=== PATIENT | female | born 1990 | race Caucasian/White ===

== ENCOUNTER 2016-04-06 14:07 | Emergency (ER) | payer OTHER ==
[2016-04-06] MEDS ORDERED: NS 1,000 ML IV ONE ×2 (14:49→16:18)
[2016-04-06] MEDS ORDERED: KETOROLAC 30 MG/1 ML SDV IVP ONE (14:49)
--- NOTE | 2016-04-06 15:04 | UCPHY ---
H & P Patient Type: New Chief Complaint Nursing Narrative: fever/nasal drng yellow/ n/v (pain under l breast) Time Seen by Provider: 04/06/16 14:29 HPI/ROS: This patient reports pleuritic pain under her right breast 6/10 intensity achy and sharp in nature worse with a deep breath and worse with certain positions. She explains that she feels most comfortable in a partial reclined position with little more discomfort when she is upright. She has no pain in the breast itself or the chest wall. It feels like it is deeper in. She explains that the pain started 2 nights ago before the onset of fevers. The fever started last night. She has associated chills. She has mild myalgias. She reports nasal congestion for a long time she thinks this may be related to allergies. She notes no clear exacerbating factors for symptoms other than the positional elements listed above. ROS: No other constitutional symptoms besides with mentioned in HPI. HEENT: No facial pain or sinus pain. No headache. No throat pain or ear pain. Pulmonary: No significant dyspnea. No productive cough. Cardiovascular: She has not noticed any lightheadedness. No heart palpitations. GI: No abdominal pain. No nausea vomiting. She maintains good appetite. Integumentary: Patient reports some kind of skin lesions/wounds on her legs that have been treated the wound care clinic [facility] with honey dressings on wraps every Tuesday. She reports no leg pain currently either in the skin or in the posterior calf. She has noticed any new leg swelling. No symptoms. 10 point ROS is otherwise negative. Source: Patient Exam Limitations: No limitations - Personal History LMP (Females 10-55): Irregular Current Tetanus/Diphtheria Vaccine: Yes - Medical/Surgical History PMH: Anxiety Leg wounds/skin condition. No history of DVT or PE Hx Asthma: Yes Hx Chronic Respiratory Disease: No Hx Diabetes: No Hx Cardiac Disease: No Hx Renal Disease: No Hx Cirrhosis: No Hx Alcoholism: No Hx HIV/AIDS: No Hx Splenectomy or Spleen Trauma: No Other PMH: anxiety/allergies - Family History Significant Family History: No pertinent family hx (No family history of DVT or PE.) - Social History Smoking Status: Current every day smoker Alcohol Use: None Drug Use: None - Physical Exam Exam: Vital signs are notable for fever to 38 centigrade and tachycardia to 123 General Appearance: Alert, no distress. Eyes: Pupils equal and round no pallor or injection. ENT, Mouth: Mucous membranes moist. Respiratory: Clear to auscultation. I appreciate no rales. No wheezing. No increased work of breathing. Cardiovascular: Tachycardia. No murmur gallop rub. Gastrointestinal: Abdomen is soft and nontender, no masses, bowel sounds normal. Neurological: Alert with no focal deficits. Skin: Warm and dry, no rashes. Patient refuses exam of her legs. She will not unwrap them Musculoskeletal: Neck is supple nontender. Extremities are symmetrical, full range of motion. No leg tenderness to palpation Psychiatric: Mood and affect are normal DIFFERENTIAL DIAGNOSIS: After history and physical exam differential diagnosis was considered for pneumonia, PE, pericarditis, influenza, flu-like illness, bronchitis Constitutional: Initial Vital Signs Temperature (C) 38 C 04/06/16 14:17 Heart Rate 123 H 04/06/16 14:17 Respiratory Rate 18 04/06/16 14:17 Blood Pressure 114/65 04/06/16 14:17 O2 Sat (%) 97 04/06/16 14:17 O2 Delivery Mode Room Air Allergies/Adverse Reactions: Sulfa (Sulfonamide Antibiotics) Allergy (Verified 04/06/16 14:15) Home Medications: Medication Instructions Recorded Rexulti 04/06/16 Singulair 04/06/16 Trintellix 04/06/16 Xanax 04/06/16 Zofran 04/06/16 Medical Decision Making ED Course/Re-evaluation: I discussed this case at 3:[address] Colindres with imaging EKG and labs pending. - Data Points Laboratory Results: 04/06/16 14:50 Influenza Typ A,B (DFA) Pending Departure - Departure Referrals: NONE *PRIMARY CARE P,. [Primary Care Provider] - As per Instructions - PQRS PQRS Measurement: NA
[2016-04-06 15:09] LABS: % IMMATURE GRANULYOCYTES 0.3 % (0.0-1.1); ABSOLUTE IMMATURE GRANULOCYTES 0.02 10^3/uL (0.00-0.10); ADD DIFF? NO; ADD MORPH? NO; ADD SCAN? NO; ATYPICAL LYMPHOCYTE FLAG 0 (0-99); FRAGMENT RBC FLAG 60 (0-99); LEFT SHIFT FLG 0 (0-99); LIPEMIA HEMOLYSIS FLAG 80 (0-99); MEAN CELL HEMOGLOBIN 22.9 pg (27.9-34.1); MEAN CELL HEMOGLOBIN CONCENTR. 31.3 g/dL (32.4-36.7); MEAN CELL VOLUME 73.4 fL (81.5-99.8); MEAN PLATELET VOLUME 10.4 fL (8.7-11.7); PLATELET CLUMPS FLAG 0 (0-99); PLATELET COUNT 258 10^3/uL (150-400); RED BLOOD CELL COUNT 4.36 10^6/uL (4.18-5.33); RED CELL DISTRIBUTION WIDTH 17.3 % (11.5-15.2)
[2016-04-06 15:21] LABS: ANION GAP 13 mEq/L (8-16); CALCIUM 8.8 mg/dL (8.5-10.4); CARBON DIOXIDE 23 mEq/l (22-31); CHLORIDE 100 mEq/L (97-110); CREATININE 0.8 mg/dL (0.6-1.0); GLOMERULAR FILTRATION RATE > 60; GLUCOSE 140 mg/dL (70-100); POTASSIUM 4.3 mEq/L (3.5-5.2); SODIUM 136 mEq/L (134-144)
[2016-04-06 15:33] LABS: ALBUMIN 3.7 g/dL (3.5-5.0); BILIRUBIN,TOTAL 1.2 mg/dL (0.1-1.4); BILIRUBIN-CONJUGATED 0.4 mg/dL (0.0-0.5); BILIRUBIN-UNCONJUGATED 0.8 mg/dL (0.0-1.1); TOTAL PROTEIN 7.1 g/dL (6.3-8.2)
--- NOTE | 2016-04-06 15:36 | CPEKG ---
Heart Rate: 105 RR Interval: 571 P-R Interval: 140 QRSD Interval: 88 QT Interval: 332 QTC Interval: 439 P [place]: 32 QRS [place]: 47 T Wave [place]: 20 EKG Severity - OTHERWISE NORMAL ECG - EKG Impression: SINUS TACHYCARDIA Electronically Signed By: Maciel Guillermo 08-Apr-2016 08:54:51
[2016-04-06] MEDS ORDERED: IOPAMIDOL (ISOVUE-370) 150 ML BTL IV ONE (15:46)
[2016-04-06] MEDS ORDERED: AZITHROMYCIN IV 500 MG in D5W 250 ML IV ONE (16:33)
[2016-04-06] MEDS ORDERED: cefTRIAXone 1 GM VIAL ONE (16:47)
[2016-04-06 17:54] VITALS: TEMP 99; O2SAT 95
[2016-04-06 18:41] VITALS: BP 123/79; PULSE 88; RESP 20
== END 2016-04-06 18:53 | disposition home or self-care (01) ==
LOC: CED 14:07
DX: J18.9 Pneumonia, unspecified organism (principal); B95.61 Methicillin susceptible Staphylococcus aureus infection as the cause of diseases classified elsewhere; F17.200 Nicotine dependence, unspecified, uncomplicated; Z88.2 Allergy status to sulfonamides
CPT/HCPCS: 71020-PO; 71275-PO; 80048-PO; 80076-PO; 83605-PO; 84703-PO; 85025-PO; 85378-PO; 87400-PO; 93010-PO; 96361-PO; 96365-PO; 96367-PO; 96375-PO; 99205-PO; G0463-PO; J0456; J0696; J1885; Q9967

== ENCOUNTER 2016-04-07 23:58 | Inpatient (IN) | payer OTHER ==
[2016-04-08] MEDS ORDERED: ceFAZolin 1 GM in NS 100 ML IV ONE (00:59)
--- NOTE | 2016-04-08 00:59 | EDPHY ---
H & P Stated Complaint: SENT BY [facility] FOR BACTERIA IN BLOOD, STILL HAVING R CHEST PAIN ,FEVER Time Seen by Provider: 04/08/16 00:16 HPI/ROS: HPI The patient presents with right-sided chest pain and fever which have been present for the last 3 days. Her symptoms began with pain below her right breast 4 days ago, then she developed a fever the next day. Her fevers have been as high as 104.5. She does not have a cough, runny nose, sore throat. She does not have a rash. She was seen at the [facility] yesterday and had a workup there including a CT scan of her chest which revealed bilateral pneumonia. She was discharged on azithromycin. She has been feeling the same ever since. Blood cultures were sent and today are growing methicillin sensitive Staph aureus. Because of this the patient was contacted at home and told to return to the emergency room. She has a history of IV drug use, last use in December of 2015. She also has a history of chronic leg ulcerations after an episode of peripheral edema for which she is getting care at a wound care center.. REVIEW OF SYSTEMS Constitutional: No fever, no chills. Eyes: No discharge. ENT: No sore throat. Cardiovascular: No chest pain, no palpitations. Respiratory: No cough, no shortness of breath. Gastrointestinal: No abdominal pain, no vomiting. Genitourinary: No hematuria. Musculoskeletal: No back pain. Skin: No rashes. Neurological: No headache. PMHx: Have a normal echo about 1 month ago with a bicuspid aortic valve possibly? Soc Hx: Housed, history of IV drug use PHYSICAL General Appearance: Alert, no distress Eyes: Pupils equal and round no pallor or injection ENT, Mouth: Mucous membranes moist Respiratory: There are no retractions, lungs are clear to auscultation Cardiovascular: Regular rate and rhythm, no murmur Gastrointestinal: Abdomen is soft and non-tender, no masses, bowel sounds normal Neurological: A&O, moves all extremities Skin: Warm and dry, no rashes Musculoskeletal: Neck is supple non tender Extremities: symmetrical, legs are wrapped with [place] Psychiatric: Patient is oriented X 3, there is no agitation Source: Patient Exam Limitations: No limitations - Personal History LMP (Females 10-55): Irregular Current Tetanus/Diphtheria Vaccine: Yes - Medical/Surgical History Hx Asthma: Yes Hx Chronic Respiratory Disease: No Hx Diabetes: No Hx Cardiac Disease: No Hx Renal Disease: No Hx Cirrhosis: No Hx Alcoholism: No Hx HIV/AIDS: No Hx Splenectomy or Spleen Trauma: No Other PMH: anxiety/allergies, GERD - Social History Smoking Status: Current every day smoker Constitutional: Initial Vital Signs Temperature (C) 36.7 C 04/08/16 00:05 Heart Rate 95 04/08/16 00:05 Respiratory Rate 18 04/08/16 00:05 Blood Pressure 122/85 H 04/08/16 00:05 O2 Sat (%) 100 04/08/16 00:05 Allergies/Adverse Reactions: Sulfa (Sulfonamide Antibiotics) Allergy (Verified 04/08/16 00:03) Home Medications: Medication Instructions Recorded AZITHROMYCIN [Z-PACK] 500 mg PO DAILY #7 tab 04/06/16 Ibuprofen [Motrin (*)] 800 mg PO Q6-8PRN #10 tab 04/06/16 Rexulti 04/06/16 Singulair 04/06/16 Trintellix 04/06/16 Xanax 04/06/16 Zofran 04/06/16 Medical Decision Making - Diagnostics Imaging: Chest x-ray two view shows bilateral infiltrates verses reactive airway disease , interpreted by me, radiology interpretation is pending ED Course/Re-evaluation: In the emergency room, the patient had a deep brachial IV placed by me. Blood cultures were drawn, the patient was given IV fluids and Toradol for her pain. I discussed the case with the hospitalist and we plan to admit the patient. We will start her on Ancef. Differential Diagnosis: This is a 26-year-old female with recent diagnosis of bilateral pneumonia yesterday at [facility] based on CT scan of chest with IV contrast. The patient has had several days of fever and right-sided chest pain. Blood cultures returned positive for MSSA today which raises suspicion of endocarditis given her history of IVDU. Differential diagnosis includes endocarditis, bilateral pneumonia, bacteremia. - Data Points Medications Given: Discontinued Medications Cefazolin Sodium/Dextrose (Ancef 1 Gm (Premix)) 50 mls @ 200 mls/hr IV EDNOW ONE Stop: 04/08/16 01:44 Last Admin: 04/08/16 03:15 Dose: 50 mls Ketorolac Tromethamine (Toradol) 30 mg IVP ONCE ONE Stop: 04/08/16 02:05 Last Admin: 04/08/16 02:27 Dose: 30 mg Departure - Departure Disposition: [facility] Acute Clinical Impression: Bacteremia Pneumonia Qualifiers: Pneumonia type: due to unspecified organism Laterality: bilateral Lung location : unspecified part of lung Qualified Code(s): J18.9 - Pneumonia, unspecified organism Condition: Fair
[2016-04-08 01:46] LABS: COLOR PALE YELLOW; LEUKOCYTE ESTERASE,URINE NEGATIVE (NEGATIVE); NITRITE,URINE NEGATIVE (NEGATIVE)
[2016-04-08 01:48] LABS: BACTERIA 3+ /hpf (NONE SEEN)
[2016-04-08] MEDS ORDERED: KETOROLAC 30 MG/1 ML SDV IVP ONE (02:04)
[2016-04-08 02:05] LABS: % IMMATURE GRANULYOCYTES 0.3 % (0.0-1.1); ABSOLUTE IMMATURE GRANULOCYTES 0.02 10^3/uL (0.00-0.10); ADD DIFF? NO; ADD MORPH? NO; ADD SCAN? NO; ATYPICAL LYMPHOCYTE FLAG 20 (0-99); FRAGMENT RBC FLAG 60 (0-99); HEMATOCRIT 29.2 % (38.0-47.0); HEMOGLOBIN 8.9 g/dL (12.6-16.3); LEFT SHIFT FLG 10 (0-99); LIPEMIA HEMOLYSIS FLAG 80 (0-99); MEAN CELL HEMOGLOBIN 22.9 pg (27.9-34.1); MEAN CELL HEMOGLOBIN CONCENTR. 30.5 g/dL (32.4-36.7); MEAN CELL VOLUME 75.1 fL (81.5-99.8); MEAN PLATELET VOLUME 12.4 fL (8.7-11.7); PLATELET CLUMPS FLAG 0 (0-99); PLATELET COUNT 312 10^3/uL (150-400); RED BLOOD CELL COUNT 3.89 10^6/uL (4.18-5.33); RED CELL DISTRIBUTION WIDTH 17.7 % (11.5-15.2)
[2016-04-08 02:17] LABS: ALANINE AMINOTRANSFERASE 47 IU/L (9-52); ALKALINE PHOSPHATASE 86 IU/L (38-126); ANION GAP 11 mEq/L (8-16); ASPARTATE AMINOTRANSFERASE 35 IU/L (14-46); BILIRUBIN,TOTAL 0.8 mg/dL (0.1-1.4); CARBON DIOXIDE 24 mEq/l (22-31); CHLORIDE 106 mEq/L (97-110); CREATININE 0.6 mg/dL (0.6-1.0); GLOMERULAR FILTRATION RATE > 60; GLUCOSE 90 mg/dL (70-100); POTASSIUM 3.8 mEq/L (3.5-5.2); SODIUM 141 mEq/L (134-144); TOTAL PROTEIN 7.5 g/dL (6.3-8.2)
[2016-04-08] MEDS ORDERED: PROMETHAZINE HCL 25 MG/ML INJ IVP PRN (03:04)
[2016-04-08] MEDS ORDERED: ACETAMINOPHEN 325 MG TAB PO PRN (03:04)
[2016-04-08] MEDS ORDERED: IBUPROFEN 600 MG TAB PO PRN (03:20)
--- NOTE | 2016-04-08 03:54 | GHP ---
DATE OF ADMISSION: 04/08/2016 CHIEF COMPLAINT: Pleuritic chest pain. HISTORY: The patient is a 26-year-old female, who went to urgent care on April 06 complaining of right-sided pleuritic chest pain. This was better with lying down and worse with being upright. I was present for 2 days at the time of presentation. She was having fever and chills. CT angiogram of the chest was negative for pulmonary embolus but did show pneumonia. She was treated with IV ce ftriaxone and discharged with oral azithromycin. Blood cultures drawn at urgent care, have grown 1/ 4 bottles with MSSA and so she was called to return to the emergency room. She states her chest pain over the last 2 days has gotten worse. She has never had any cough. She has been taking her antibiotic as prescribed. She has chronic lower extremity leg wounds for the st few months due to development of edema. Etiology of the edema is unclear. She is followed at [facility]. They are doing a honey dressing. She saw her wound care physician t his morning at [place] and the wounds were healing nicely without any signs of infection. She is decli filiberto takedown of those dressings at this time. She was referred to Cardiology for evaluation of pos sible cardiac etiology of edema. She has a known bicuspid aortic valve which was diagnosed when she was a teenager. She had an echo [address] Bronson and they have not heard any results. They have a followup appointment with him next week. PAST MEDICAL HISTORY: 1. Bicuspid aortic valve. 2. IV drug abuse last used in December. 3. Anxiety. MEDICATIONS: Please see computer record for full detailed list. ALLERGIES: To sulfa. SOCIAL HISTORY: She is a smoker. She has a history of IV drug abuse. Her last use was in December . She lives with her boyfriend. Her parents appear to be very supportive and are at bedside. She is not currently employed. 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 She hop es to go back and complete her degree. She has a plan regarding outpatient resources for her addict ion issues. REVIEW OF SYSTEMS: Complete review of systems obtained. Review of systems is negative regarding co nstitutional, HEENT, GI, pulmonary, cardiovascular, , hematology, skin, musculoskeletal, endocrine , psych, except for positives as in HPI. FAMILY HISTORY: Reviewed, noncontributory to presenting complaint. PHYSICAL EXAMINATION: GENERAL: Well-developed, well-nourished female, in no acute no acute distres s. VITAL SIGNS: Temperature is 36.7, pulse 95, blood pressure 122/85, saturating 95% on room air. HEENT: Normal conjunctiva. Pupils react to light. ENT: Normal ears and nose. Hearing intact. Normal teeth. Oropharynx moist. NECK: Trachea midline. No thyromegaly. CHEST: Normal respirato ry effort. LUNGS: Clear to auscultation bilaterally. CARDIOVASCULAR: Regular rate and rhythm. I do not hear much of a murmur. LOWER EXTREMITIES: Edematous but wrapped in a large dressing. She refuses having these dressings taken down. ABDOMEN: Soft, nontender. No hepatosplenomegaly. SKIN : Warm, dry, intact without rash. I cannot assess lower extremities due to her refusal. MUSCULOSK ELETAL: No cyanosis or clubbing. Strength 5/5 upper and lower extremities. NEURO: Cranial nerves intact. Normal sensation to light touch. PSYCH: Alert and oriented x3. She is very anxious, cry ing frequently throughout the exam. Normal judgment, insight. Normal memory. LABORATORY DATA: White count 6.16, hematocrit 29.2, platelets 312. Sodium 141, potassium 3.8, chlo ride 106, bicarb 24, BUN 9, creatinine 0.6, glucose 90. LFTs are negative. EKG viewed by me. My personal interpretation is sinus rhythm, no ST-T wave changes. Chest x-ray is negative. Blood cultures from April 06 growing MSSA / bottles. CT angiogram of chest on that date shows bilateral infiltrates consistent with pneumonia. No PE. Influenza DFA was negative. This case was discussed with Dr. Val Sher, emergency [facility]. They have been struggling with IV access in the emergency room but they will plan to give IV Ancef. ASSESSMENT/PLAN: 1. Staph aureus bacteremia, 02/10 blood cultures positive repeat blood cultures have been sent. The patient be initiated on IV Ancef. Will consult Infectious Disease. Source of the bacteremia is unc lear. I query her leg wounds and I informed her that dressings will need to be taken down at some p oint during this hospitalization. 2. Bicuspid aortic valve. Will check a transthoracic echocardiogram. She may need a SUHAIL. 3. History of IV drug abuse. No use since last December. Will check an HIV. 4. Anxiety. This appears to be quite significant. Will reconcile her home medications. 5. Pneumonia. She has only gotten 2 days of azithromycin. She does have confirmed infiltrates on her CAT scan. Will continue azithromycin orally. 6. Leg wounds. She refuses taking down of her dressings tonight. She hesitantly agreed to do it i n court if the wound care nurse coordinates with her outpatient wound care physician at [place]. 7. Lower extremity edema. Etiology of this is unclear. She does not appear to be in congestive he art failure. Reported previous lower extremity ultrasounds were negative for DVT. 8. Tobacco dependence. Will offer nicotine patch. 9. Pleuritic chest pain. This is probably pleurisy related to her pneumonia. She will be treated with Toradol as needed. CORE STATUS: Full. ADMISSION STATUS: Will admit to inpatient as she is medically complex. Anticipate greater than 2 m idnights required. DVT PROPHYLAXIS: She is moderate risk. Will prescribe subcu Lovenox. /[id number]/MODL
[2016-04-08] MEDS: NS 1,000 ML IV SCH (04:09)
[2016-04-08] MEDS: LORazepam 0.5 MG TAB PO PRN (04:10)
[2016-04-08] MEDS ORDERED: AZITHROMYCIN 250 MG TAB PO SCH (09:00)
[2016-04-08] MEDS: ENOXAPARIN 40 MG/0.4 ML SYR SC SCH (09:50)
--- NOTE | 2016-04-08 09:53 | WOCRNPDOC ---
[facility] Advanced Assessment Note - Skin Integrity Problem, Advanced Assess Right Anterior Lower Leg Dressing Type: Honey Alginate, Unna Boots, Xtrasorb Dressing Description: Intact, Shadowed (Optilock shadowed. Unna boot intact) Exudate Amount: Moderate Exudate Characteristic(s): Serosanguinous Integumentary Issue Intervention: Dressing Changed Sally Wound Swelling: Mild Wound Bed Constitution: Granulation Tissue, Adhered Slough, Loose Slough Wound Edges: Epithelizing, Attached, Irregular, Scarred Site Odor: None Site Measurement - Head-to-Toe Length X Width X Depth (cm): 7.3x4.2x0.3 Skin Integrity Problem Comment: Dressing changed and wound debrided yesterday at [facility] outpatient wound care department. Sally wound skin with scar tissue evident of a much larger wound that has been healing over an extended period of time. Discussed patient with Michelle wound RN at [facility]. Wounds biopsied in Dec with a report of inflammatory changes but negative for other anomalies. Patient being treated for venous stasis wounds with inelastic compression. SPP done with a result of approx 50 mm Hg. Wound cleaned with ns and gauze. skin prep applied periwound. Honey alginate placed over open area and then covered with 1/2 tegaderm absorbant. Wraped in place with kerlix. Angie MIMS in room. Left Anterior Lower Leg Dressing Type: Promogran Ag+, Unna Boots, Xtrasorb Dressing Description: Clean/Dry, Shadowed (xtrasorb was shadowed. Not unna boot. ) Exudate Amount: Moderate Exudate Characteristic(s): Serosanguinous Integumentary Issue Intervention: Dressing Changed Sally Wound Tissue: Scarred Sally Wound Swelling: Mild Wound Bed Color: [place], Red Wound Bed Constitution: Granulation Tissue, Smooth Tissue (including epithelial tissue in the wound bed. ) Wound Edges: Epithelizing Site Odor: None Site Measurement - Head-to-Toe Length X Width X Depth (cm): 5.5x4.3x0.3 Extremity Temperature: Warm Skin Integrity Problem Comment: Same wound history as right leg. Cleaned with ns and gauze. Following outpatient wound care at [facility]'s plan, malou was placed over wound bed. This was covered with tegaderm absorbant and secured with kerlix. Asked PRASANNA Adams to measure calves so Tubigrips could be sent down. Waiting for measurements. Dr. Mendoza visualized wounds. PRASANNA Adams measured bilateral calves to 41 cm. Tubigrip G sent down for patient for low compression.
[2016-04-08] MEDS: NICOTINE 21 MG/24 HR PATCH TD SCH (10:00)
[2016-04-08] MEDS: KETOROLAC 30 MG/1 ML SDV IVP PRN ×2 (10:11→21:46)
[2016-04-08 10:47] LABS: HEMATOCRIT 30.1 % (38.0-47.0)
[2016-04-08 11:02] LABS: TROPONIN I < 0.012 ng/mL (0-0.034)
[2016-04-08 11:24] LABS: C-REACTIVE PROTEIN 141.9 mg/L (<10.0)
--- NOTE | 2016-04-08 11:25 | GCON ---
INFECTIOUS DISEASE CONSULTATION DATE OF CONSULTATION: 04/08/2016 REFERRING PHYSICIAN: Susannah Aragon MD REASON FOR CONSULTATION: Staphylococcus aureus bacteremia. HISTORY OF PRESENT ILLNESS: The patient is a 26-year-old female with a past medical history of chronic lower extremity wounds for several months, who I am asked to see in consultation for methicillin-susceptible Staphylococcus aureus bacteremia. The patient described developing fever and chills several days prior to presentation. The chills were consistent with rigors. The patient also developed right-sided pleuritic chest pain without cough or shortness of breath. She had some associated nausea with vomiting but no diarrhea. She did not have sore throat, urinary symptoms, or additional skin rash other than chronic ulcerations over her lower extremity, which were cared for at [facility]. The patient was seen in urgent care on , at which point in time a CT scan of the chest was done which did not show evidence of pulmonary emboli but did reveal bilateral ground-glass opacities, most prominent in the lung periphery. The patient has a known prior history of bicuspid aortic valve as well. The patient was treated with ceftriaxone and azithromycin, and blood cultures were obtained. The following day, her blood cultures began to grow MSSA in 1 set, and the patient was notified and advised to return to the hospital for further care. She has been started on cefazolin based on her positive blood cultures, and azithromycin has been continued for possible pneumonia. The patient has a history of injection drug use and denies any use since December. She has no recent travel. She notes that she did not share needles previously. Given the above findings, I am now asked to assist in the patient's ongoing management. PAST MEDICAL HISTORY: Chronic leg ulcerations of unclear etiology as above, bicuspid aortic valve, odontogenic infection after wisdom tooth extraction. PAST SURGICAL HISTORY: [place] tooth extraction, wrist fracture on the right requiring hardware placement. CURRENT MEDICATIONS: Ancef 1 g IV q.8 hours, azithromycin 500 mg p.o. daily, Lovenox 40 mg subcu daily, Motrin as needed, Toradol as needed, Ativan as needed , NicoDerm CQ 21 mg patch applied daily. ALLERGIES: Sulfonamides, associated with anaphylaxis. SOCIAL HISTORY: Patient smokes several cigarettes daily. No alcohol intake. She denies any current drug use. She previously was using injection heroin but notes no use since December. States previous HIV testing was negative. Unclear prior hepatitis testing. There is a pet cat. She currently is unemployed. FAMILY HISTORY: Noncontributory. REVIEW OF SYSTEMS: Outside that noted in the HPI, the remainder of a 10-system review is unremarkable. PHYSICAL EXAMINATION: VITAL SIGNS: Temperature maximum of 38 on 04/06/2016, temperature current 37, heart rate 99, respiratory rate 16, blood pressure 140/ 78, oxygen saturation 87% on room air. GENERAL: Patient is mildly ill appearing but in no acute distress. She appears nontoxic. HEENT: There is no scleral icterus, conjunctival injection, or conjunctival petechiae. Oropharynx shows moist mucous membranes with no lesions noted. Dentition is in fair repair. There is no nasal discharge. There is no tenderness over the frontal, maxillary, or mastoid area. NECK: Supple without lymphadenopathy or palpable thyromegaly. CHEST: There are crackles at the right base, otherwise clear to auscultation. Respiratory effort is normal. CARDIOVASCULAR: Regular rate and rhythm with a 2/6 holosystolic murmur heard throughout. There are no gallops or rubs noted. ABDOMEN: Soft, nontender, nondistended. There is no palpable organomegaly. Bowel sounds are present. MUSCULOSKELETAL: There is 1+ lower extremity edema bilaterally. SKIN: There are clean-based ulcerations over both anterior shins measuring approximately 6 x 8 cm without surrounding cellulitis. There is no purulent discharge. There are no stigmata of endocarditis present. The skin is warm diffusely. NEUROLOGIC: Patient is alert and interacts appropriately with the examiner. Cranial nerves 2-12 are grossly intact. Muscle tone and bulk are normal. LYMPHATICS: There are no cervical, supraclavicular or inguinal nodes palpable. LABORATORY DATA: White blood cell count 6.2, hematocrit 29.2, platelets 312, neutrophils 63%, lymphocytes 26%. Serum creatinine is 0.6, AST 35, ALT 47, bilirubin 0.8, albumin 4.0, alkaline phosphatase 86. , Beta HCG is negative. Urinalysis shows 10-15 red blood cells with 3+ bacteria. HIV antibody is pending. Influenza by DFA is negative. Blood culture showing 1 of 4 bottles with growth of MSSA from 04/06/2016. Blood cultures from 04/08/[address] scan of the chest as outlined above, which was reviewed and interpreted by me with Radiology today. EKG shows OK interval of 0.14. IMPRESSION: 1. Methicillin-resistant Staphylococcus aureus bacteremia with concomitant bilateral ground-glass opacities: Most likely portal of entry for patient's staphylococcal bacteremia is her chronic leg wounds. Recurrent injection drug use is also of consideration, although patient currently notes that she has been free of heroin use since December. The pulmonary infiltrates are concerning for early septic pulmonary emboli based on the nodular component and the peripheral location. Community-acquired pneumonia seems less likely on top of her Staphylococcus bacteremia. Given her underlying bicuspid aortic valve, endocarditis is of concern; and based on the pulmonary findings, also have concerns about possible involvement of the tricuspid valve. We will increase cefazolin from 1 g q.8 hours to 2 g q.8 hours. 2. History of injection drug use. Await HIV antibody. We will also check hepatitis B and C serologies. 3. Chronic leg wounds: Appearance is consistent with venous insufficiency, although she is young for this disease process. We will obtain records from [facility] regarding her prior care. Query if she has undergone previous ultrasound to assess for venous reflux. Pyoderma would also be a consideration, although the bilateral and symmetric nature is somewhat unusual. RECOMMENDATIONS: 1. Increase Ancef to 2 g IV q.8 hours. 2. Await echocardiogram. If transthoracic echocardiogram is unrevealing, likely will require SUHAIL for further evaluation. 3. Follow up repeat blood cultures as available. 4. Continue local wound care. 5. Check followup HIV antibody and check hepatitis B and C serologies. 6. Discontinue azithromycin. /[id number]/MODL MTDD
--- NOTE | 2016-04-08 12:10 | ECHO ---
[id number] + + [address] : : [place] [address] : : [phone] + Adult Echocardiographic Report + ---------+ :Name: CALVIN CORONADO LStudy Date: 04/08/2016 11:05 AM : : Hospital Admission Number: [id number] Tawnya rachidradha: 215: :: 1990 Gender: Female Height: 70 i n : :Age: 26 yrs Race: WH Weight: 175 lb : :Reason For Study: CHF : : BSA: 2.0 met ers2 : + ---------+ MMode/2D Measurements \T\ Calculations IVSd: 1.1 cm LVIDd: 4.4 cm FS: 32.1 % LVOT diam: 2.2 cm LVPWd: 1.0 cm LVIDs: 3.0 cm EDV(Teich): LVOT area: 88.4 ml 3.7 cm2 ESV(Teich): 35.0 ml EF(Teich): 60.4 % LVLd ap4: 8.6 cm SV(MOD-sp4): EDV(MOD-sp4): 60.0 ml 93.0 ml LVLs ap4: 6.8 cm ESV(MOD-sp4): 33.0 ml EF(MOD-sp4): 64.5 % Normal Measurement Values: + + :LVIDd (3.5-5.7cm) IVSd (0.6-1.1cm) LVPWd (0.6-1.1cm) Aortic Root (2.0-3.7cm)Left Atrium (1.5-4.0cm): :LV Vol(d) (76-115ml) LV Vol(s) (29-48ml) Ejec Fraction (50-65%)PV Mikhail (0.6- 1.2m/s) TV Mikhail (0.4-1.0m/s) : :MV E Mikhail (0.8-1.0m/s)MV A Mikhail (0.3-1.0m/s)LVOT Mikhail (0.7-1.2m/s) Asc Ao Mikhail ( 0.9-1.8m/s) : + + Doppler Measurements \T\ Calculations MV E max mikhail: MV V2 max: Ao mean PG: LV V1 mean P.5 cm/sec 99.4 cm/sec 3.0 mmHg 1.6 mmHg MV A max mikhail: MV max PG: Ao V2 mean: LV V1 mean: 60.2 cm/sec 3.9 mmHg 77.0 cm/sec 58.1 cm/sec MV E/A: 1.9 MV V2 mean: Ao V2 VTI: 24.1 cm LV V1 VTI: 19.6 cm MV dec time: 73.8 cm/sec VICENTE(I,D): 3.0 cm2 0.20 sec MV mean P.3 mmHg MV V2 VTI: 26.0 cm MVA(VTI): 2.8 cm2 SV(LVOT): 72.8 ml PA V2 max: TR max mikhail: 98.8 cm/sec 244.3 cm/sec PA max PG: TR max P.9 mmHg 23.9 mmHg RAP systole: 15.0 mmHg RVSP(TR): 38.9 mmHg Left Ventricle The left ventricle is normal in size and function. There is normal left ventricular wall thickness. Ejection Fraction = 60-65%. Right Ventricle The right ventricle is normal in size and function. Atria The left atrial size is normal. Right atrial size is normal. The interatrial septum is intact with no evidence for an atrial septal defect. Mitral Valve The mitral valve is normal in structure and function. There is no mitral valve stenosis. There is trace to mild mitral regurgitation. Tricuspid Valve The tricuspid valve is normal in structure and function. There is no tricuspid stenosis. There is mild tricuspid regurgitation. Right ventricular systolic pressure is 38.9mmHg. There is Doppler evidence for mild pulmonary hypertension. Aortic Valve Functional Bicuspid AV. There is mild aortic valve calcification. There is no aortic stenosis. Trace aortic regurgitation. Pulmonic Valve The pulmonic valve is not well visualized. There is no pulmonic valvular stenosis. There is no pulmonic valvular regurgitation. Great Vessels The aortic root is not well visualized. Pericardium/Pleural There is a fat pad seen. Conclusion A complete two-dimensional transthoracic echocardiogram was performed (2D, M-mode, Doppler and color flow Doppler). The left ventricle is normal in size and function. Ejection Fraction = 60-65%. There is trace to mild mitral regurgitation. There is mild tricuspid regurgitation. Right ventricular systolic pressure is 38.9mmHg. There is Doppler evidence for mild pulmonary hypertension. Functional Bicuspid AV There is mild aortic valve calcification. Trace aortic regurgitation. The aortic root is not well visualized. Final Reading Physician: Purvi Alexander signed on 04/08/2016 12:09 PM Ordering Physician: Susannah Aragon Performed By: Apolonia Russell
[2016-04-08] MEDS: ceFAZolin 2 GM in D5W 100 ML IV SCH ×2 (13:59→22:00)
[2016-04-08] MEDS ORDERED: ceFAZolin 2 GM/DEXTROSE 100 ML IV SCH (14:00)
--- NOTE | 2016-04-08 15:24 | HOSPPROG ---
Hospitalist Progress Note Assessment/Plan: 26 y/o female new to my care today presenting with #MSSA Bacteremia likely from pneumonia #Bicuspid aortic valve #Lower extremity edema #Tobacco dependence #pleuritic chest pain #leg wounds #anxiety/depression Plan -id consult reviewed -cont Ancef -echo reviewed without obvious vegetation -cont pain control with nsaids Subjective: improving chest pain. no fevers or chills Objective: Vital Signs Temp Pulse Resp BP Pulse Ox 36.8 C 99 16 140/78 H 87 L 04/08/16 11:13 04/08/16 07:28 04/08/16 07:28 04/08/16 07:28 04/08/16 07:28 Laboratory Results 04/08/16 01:50 04/08/16 01:50 04/07/16 04/08/16 04/09/16 05:59 05:59 05:59 Intake Total 525 1300 Balance 525 1300 - Physical Exam Constitutional: no apparent distress, appears nourished, not in pain Cardiovascular: regular rate and rhythym, no murmur, rub, or gallop Respiratory: no respiratory distress, no rales or rhonchi, clear to auscultation Gastrointestinal: normoactive bowel sounds, soft, non-tender abdomen, no palpable masses ICD10 Worksheet Patient Problems: Problems Problem Status Onset Bacteremia Acute Pneumonia Acute
[2016-04-08] MEDS ORDERED: IBUPROFEN 800 MG TAB PO PRN (15:30)
[2016-04-08] MEDS: VORTIOXETINE HYDROBROMIDE 20 MG PO SCH (16:15)
[2016-04-08] MEDS: ALPRAZolam 1 MG TAB PO PRN (16:23)
[2016-04-08] MEDS ORDERED: ALTEPLASE 2 MG VIAL IVP PRN (16:31)
[2016-04-08] MEDS: MONTELUKAST SODIUM 10 MG TAB PO SCH (17:23)
[2016-04-09] MEDS: NS 1,000 ML IV SCH (03:48)
[2016-04-09] MEDS: KETOROLAC 30 MG/1 ML SDV IVP PRN ×4 (03:48→22:58)
[2016-04-09] MEDS: ceFAZolin 2 GM in D5W 100 ML IV SCH ×3 (06:10→21:07)
[2016-04-09] MEDS: ENOXAPARIN 40 MG/0.4 ML SYR SC SCH (09:32)
[2016-04-09] MEDS: VORTIOXETINE HYDROBROMIDE 20 MG PO SCH (09:36)
[2016-04-09] MEDS: NICOTINE 21 MG/24 HR PATCH TD SCH (09:37)
--- NOTE | 2016-04-09 13:45 | HOSPPROG ---
Hospitalist Progress Note Assessment/Plan: 26 y/o female new to my care today presenting with #MSSA Bacteremia with suspected septic emboli on CT chest #Bicuspid aortic valve #Lower extremity edema #Tobacco dependence #pleuritic chest pain #leg wounds #anxiety/depression Plan -cont Ancef -echo reviewed without obvious vegetation -cont pain control with nsaids (plan to dc toradol tomorrow) Subjective: continues to have severe pleuritic chest pain. night sweats, but no fever Objective: Vital Signs Temp Pulse Resp BP Pulse Ox 36.6 C 65 14 120/78 97 04/09/16 07:31 04/09/16 07:31 04/09/16 07:31 04/09/16 07:31 04/09/16 07:31 Laboratory Results 04/08/16 01:50 04/08/16 01:50 04/08/16 04/09/16 04/10/16 05:59 05:59 05:59 Intake Total 525 2331 238 Balance 525 2331 238 - Physical Exam Constitutional: no apparent distress, appears nourished, not in pain Cardiovascular: regular rate and rhythym, no murmur, rub, or gallop Respiratory: no respiratory distress, no rales or rhonchi, clear to auscultation Gastrointestinal: normoactive bowel sounds, soft, non-tender abdomen, no palpable masses ICD10 Worksheet Patient Problems: Problems Problem Status Onset Bacteremia Acute Pneumonia Acute
[2016-04-09] MEDS ORDERED: IOPAMIDOL (ISOVUE-370) 150 ML BTL IV ONE (14:18)
--- NOTE | 2016-04-09 16:25 | PCMIDPN ---
Assessment/Plan: Assessment: Staph aureus bacteremia-unclear source. Chest CT reviewed and no clear evidence of bacterial pneumonia. There may be some peripheral pneumonitis but that is all. The fact that the patient also has 9 months of symmetric skin ulcerations on her anterior shins is also weird. Her 2D echo did not show any evidence of vegetation but given the circumstance I think SBE is a reasonable consideration for diagnosis. Therefore she will need a transesophageal echocardiogram tomorrow. In the meantime I will also order a CT angiogram of the abdomen and pelvis to try to look for areas of mycotic aneurysm. I suspect that the ulcerations on her legs are not secondary to venous insufficiency but instead are likely immunologic or vasculitic. Apparently there was a biopsy done at [facility] sometime within the past 9 months that was nonspecific. Plan: 1. Obtain CT angiogram of abdomen and pelvis with runoff to look for possible areas of inflammation in the vasculature. 2. Set up for a transesophageal echocardiogram tomorrow morning. 3. Continue IV cefazolin. 4. Recheck blood cultures tomorrow. 04/09/16 16:21 04/09/16 16:25 Subjective: Patient is resting in her hospital bed. Details of her presentation reviewed. Family is in the room. She complains of his sharp pleuritic pain at the bottom of her ribcage on the right side underneath her breast. No other fevers or chills. Notes that the skin ulcerations on her legs have been present for approximately 9 months. Objective: Cefazolin #1 Vital Signs Temp Pulse Resp BP Pulse Ox 37.2 C 75 16 159/87 H 98 04/09/16 15:40 04/09/16 15:40 04/09/16 15:40 04/09/16 15:40 04/09/16 15:40 Laboratory Results 04/08/16 01:50 04/08/16 01:50 04/08/16 04/09/16 04/10/16 05:59 05:59 05:59 Intake Total 525 2331 238 Balance 525 2331 238 ESR 34 MM/HR (0-20) H 04/08/16 01:50 C-Reactive Protein 141.9 mg/L (<10.0) H 04/08/16 01:50 - Physical Exam General Appearance: WD/WN, alert, no apparent distress, non-toxic Respiratory: lungs clear, normal breath sounds, No respiratory distress Cardiac/Chest: regular rate, rhythm, No bradycardia, No tachycardia, No systolic murmur Extremities: swelling (Mild), No non-tender, No normal inspection (Open ulcerations bilateral anterior shins.Periwound tissue with discoloration and scarring but no inflammation.), No calf tenderness, No inflammation Abdomen: non-tender, soft, No mass Skin: normal color, warm/dry, No rash Neuro/Psych: alert, normal mood/affect, oriented x 3 ICD10 Worksheet Patient Problems: Problems Problem Status Onset Bacteremia Acute Pneumonia Acute
[2016-04-09] MEDS ORDERED: LACTULOSE 20 GM/30 ML UDCUP PO PRN (16:54)
[2016-04-09] MEDS ORDERED: BISACODYL 10 MG SUPP PR PRN (16:54)
[2016-04-09] MEDS ORDERED: MAGNESIUM HYDROXIDE 30 ML UDCUP PO PRN (16:54)
[2016-04-09] MEDS ORDERED: POLYETHYLENE GLYCOL 3350 17 GM PKT PO PRN (16:54)
[2016-04-09] MEDS: MONTELUKAST SODIUM 10 MG TAB PO SCH (18:11)
[2016-04-09] MEDS: SENNOSIDES/DOCUSATE SODIUM TAB PO SCH (22:04)
[2016-04-09 23:39] LABS: PHENCYCLIDINE URINE BCH < 6 ng/ml (NEGATIVE); PHENCYCLIDINE URINE BCH NEGATIVE (NEGATIVE); TETRAHYDROCANNABINOL URINE < 5 ng/mL (NEGATIVE); TETRAHYDROCANNABINOL URINE NEGATIVE (NEGATIVE)
[2016-04-10] MEDS ORDERED: NS 1,000 ML IV SCH (06:00)
[2016-04-10] MEDS: ceFAZolin 2 GM in D5W 100 ML IV SCH ×3 (06:04→23:14)
[2016-04-10] MEDS: NS 1,000 ML IV SCH (07:43)
--- NOTE | 2016-04-10 11:52 | PCMIDPN ---
Assessment/Plan: 1. Staph aureus bacteremia: Likely secondary to skin source. Repeat blood cultures are negative. Had extensive conversation with patient today about the fact that we cannot send her home with a PICC line, and explained rationale behind this. Patient was extremely tearful, but expressed understanding. She may need to stay here for this. Ultimately, when we move forward with discharge, will explain to the patient's mother that we cannot send her home with a PICC line given her history of intravenous drug use. Again, the patient is adamant that her parents not find out about the fact that she is smoking black tar heroin presently. Patient understands that she needs to enter a treatment program given exceedingly high risk of with this addiction. Continue Ancef, and await results of SUHAIL. Talked to her about not sharing needles (she never has). HIV testing negative 2. Chris ulcers: Suspect this is related to previous injection use. Hepatitis-B and C serology is pending. I also sent vasculitis studies, but this seems less likely given history. 3. Ground-glass opacities on chest CT: Suspect this is inhalational injury related to black tar heroin. Over 45 minutes was spent with this patient today, discussing her social issues as outlined above. 04/10/16 11:58 Subjective: Last night, I ordered a urine tox screen on this pt that returned positive for opiates. She has not received any here. I had a long, heart-wrenching conversation with the patient. She admitted to smoking black tar heroin, but does NOT want her parents about this. States her last IV use was in February. We proceeded to have an extensive conversation about her drug use. Objective: Ancef 2 g IV q.8 hours day 2. Vital Signs Temp Pulse Resp BP Pulse Ox 36.9 C 98 16 135/98 H 98 04/10/16 08:00 04/10/16 08:00 04/10/16 08:00 04/10/16 08:00 04/10/16 08:00 Microbiology 04/08/16 01:49 Urine Culture - Final Urine,Clean Catch Three [place] Types Laboratory Results 04/08/16 01:50 04/08/16 01:50 04/09/16 04/10/16 04/11/16 05:59 05:59 05:59 Intake Total 2331 839 Balance 2331 839 ESR 34 MM/HR (0-20) H 04/08/16 01:50 C-Reactive Protein 141.9 mg/L (<10.0) H 04/08/16 01:50 Repeat blood cultures April 08 no growth - Physical Exam General Appearance: alert, other (Crying during my interview and exam) EENT: pharynx normal, No thrush Respiratory: lungs clear Cardiac/Chest: regular rate, rhythm, No systolic murmur Skin: other (Pretibial ulcerations bilaterally. None appear infected. Sclerosed veins on lower extremities consistent with prior injection use, and the patient corroborated this.) ICD10 Worksheet Patient Problems: Problems Problem Status Onset Bacteremia Acute Pneumonia Acute
[2016-04-10] MEDS ORDERED: PROPOFOL/EMULSION 500 MG/50 ML BOTTLE IV ONE (12:28)
--- NOTE | 2016-04-10 13:12 | PDCARTEE ---
CAR SUHAIL CAR SUHAIL: SUHAIL..(preliminary) 1. ?trileaflet AV with fused raphe functional bicupid valve...no with mild AI 2. no valvular vegetations noted on TV or MV 3. normal lvef without RWMA 4. bubble study negative for shunt
--- NOTE | 2016-04-10 13:44 | ECHO ---
[id number] [id number] + + [address] : : [facility] [address] : : [phone] + Transesophageal Echocardiographic Report + ---------+ :Name: CALVIN CORONADO LStudy Date: 04/10/2016 12:06 PM : : Hospital Admission Number: [id number] Loca tion: icu: :: 1990 Gender: Female : :Age: 26 yrs Race: WH : :Reason For Study: R/O endocarditis : + ---------+ Left Ventricle The left ventricular ejection fraction is normal. No regional wall motion abnormalities noted. Atria Injection of contrast documented no interatrial shunt. No thrombus is detected in the left atrial appendage. Mitral Valve The mitral valve is normal. Tricuspid Valve Normal tricuspid valve. Aortic Valve Functionally bicuspid AV with raphe. Mild aortic regurgitation. Conclusion A 2D transesophageal echocardiogram with color flow Doppler was performed. No vegetations visualized. Injection of contrast documented no interatrial shunt. No thrombus is detected in the left atrial appendage. Functionally bicuspid AV with raphe. Mild aortic regurgitation. The left ventricular ejection fraction is normal. Final Reading Physician: Purvi Merchant signed on 04/10/2016 01:42 PM Ordering Physician: Nargis Byrd Performed By: Tamra Tello
[2016-04-10] MEDS: NICOTINE 21 MG/24 HR PATCH TD SCH (15:06)
[2016-04-10] MEDS: ENOXAPARIN 40 MG/0.4 ML SYR SC SCH (15:06)
[2016-04-10] MEDS: SENNOSIDES/DOCUSATE SODIUM TAB PO SCH ×2 (15:06→23:13)
[2016-04-10] MEDS: VORTIOXETINE HYDROBROMIDE 20 MG PO SCH (15:07)
[2016-04-10 15:44] LABS: HEPATITIS Bs Ab QUANT 43.4 mIU/mL
[2016-04-10] MEDS: MONTELUKAST SODIUM 10 MG TAB PO SCH (18:17)
[2016-04-10] MEDS: ALPRAZolam 1 MG TAB PO PRN (18:18)
--- NOTE | 2016-04-10 19:59 | HOSPPROG ---
Hospitalist Progress Note Assessment/Plan: DIAGNOSES: 1- MSSA BACTEREMIA 2- MULTIPLE CHRONIC SKIN ULCERS OF LEGS, SUSPECT DUE TO IVDA 3- ONGOING HEROIN USE, WITH OPIATES IN URINE; -pt initially denied use since december, but now in absence of family admits use in February, but with current + opiates in UA and recent needle garett in toe 4- HIV NEGATIVE 5- I DO NOT THINK SHE HAS AN AUTOIMMUNE ILLNESS, NO SIGN OF ENDOCARDITIS ON SUHAIL 6- I DO NOT THINK SHE HAS SEPTIC PULMONARY EMBOLI ON CT CHEST I have discussed in detail today with Dr Hernandez. She will need certainly two weeks of abx for her infection, I do not think she will need 4. I agree that she should not leave with a PICC line or even peripheral IV in place. She will need to get into a treatment program of some sort. Will have SW help with that but difficult as pt trying to not let family know of her ongoing use. PLANS: Continue current IV abx, may need to complete course here. follow cultures for clearing no narcotics, at this time is beyond window when would expect to see withdrawal start SUBJECTIVE: feels better w no chills or sweats no pain VITALS: no fever otherwise stable EXAM: alert oriented relaxed skin warm dry color ok resps easy lungs clear heart reg abd nl leg wounds unchanged has what looks like a needle injection site with surrounding recent ecchyosis on toe Hep serologies still pending I reviewed outpt CT Chest images, my interpretation: subtle peripheral opacites in lungs; I do not see anything that looks like septic emboli Objective: Vital Signs Temp Pulse Resp BP Pulse Ox 36.6 C 102 H 14 137/89 H 98 04/10/16 17:46 04/10/16 17:46 04/10/16 17:46 04/10/16 17:46 04/10/16 17:46 Microbiology 04/08/16 01:49 Urine Culture - Final Urine,Clean Catch Three [place] Types Laboratory Results 04/08/16 01:50 04/08/16 01:50 04/09/16 04/10/16 04/11/16 06:59 06:59 06:59 Intake Total 2569 601 500 Balance 2569 601 500 ICD10 Worksheet Patient Problems: Problems Problem Status Onset Bacteremia Acute Pneumonia Acute
[2016-04-11] MEDS: KETOROLAC 30 MG/1 ML SDV IVP PRN (00:45)
[2016-04-11] MEDS: ceFAZolin 2 GM in D5W 100 ML IV SCH ×3 (05:50→21:38)
[2016-04-11] MEDS: ENOXAPARIN 40 MG/0.4 ML SYR SC SCH (10:30)
[2016-04-11] MEDS: VORTIOXETINE HYDROBROMIDE 20 MG PO SCH (10:31)
[2016-04-11] MEDS: NICOTINE 21 MG/24 HR PATCH TD SCH (10:32)
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
[2016-04-11] MEDS: SENNOSIDES/DOCUSATE SODIUM TAB PO SCH (10:34)
--- NOTE | 2016-04-11 14:41 | HOSPPROG ---
Hospitalist Progress Note Assessment/Plan: DIAGNOSES: 1- MSSA BACTEREMIA 2- MULTIPLE CHRONIC SKIN ULCERS OF LEGS, SUSPECT DUE TO IVDA 3- ONGOING HEROIN USE, WITH OPIATES IN URINE; -pt initially denied use since december, but now in absence of family admits use in February, but with current + opiates in UA and recent needle garett in toe 4- HIV NEGATIVE 5- I DO NOT THINK SHE HAS AN AUTOIMMUNE ILLNESS, NO SIGN OF ENDOCARDITIS ON SUHAIL 6- I DO NOT THINK SHE HAS SEPTIC PULMONARY EMBOLI ON CT CHEST. 7- MICROCYTIC ANEMIA PRESUMED IRON DEFICIENT BUT NEED TO CHECK IRON LEVELS Patient does appear to have cleared the Staph aureus from her cultures and is not having overt fevers though still some sweats at night. So far there is no sign of new complications from her infection. I discussed the case in detail with Dr. Anaya Hernandez today. Also reviewed the case in detail with the patient and her parents at bedside. It seems clear to me from my discussion and responses from everyone in the room that patient has not yet discussed her ongoing opiate use with her parents. There was suspicion last night apparently of the patient using some injectable narcotic here in the hospital in her room last night. It is clear that will need to treat her for a full 2 weeks at least with antibiotics but again given the complications socially it would be hazardous probably to look at sending her out of the hospital with IV access in place. At the moment does not seem terribly likely that she is ready to come to certified prosthetist with her use and I do not think she is going to be ready to stop by the time we finished with this antibiotic course little low now. Notably she is not at this time showing any signs of withdrawal. I will need to spend some time with the patient in the absence of her family in order to review the situation with her in more detail and see whether she is serious are willing to regarding any involvement and rehabilitation. PLANS: Continue current IV abx, may need to complete course here. follow cultures for clearing no narcotics; at this time is beyond window when would expect to see withdrawal start Check iron levels and begin iron replacement therapy SUBJECTIVE: feels "better" overall but does admit to having some sweats last night. Denies nausea and is eating well no pain VITALS: no fever otherwise stable EXAM: alert oriented relaxed skin warm dry color ok resps easy lungs clear heart reg abd nl leg wounds unchanged I reviewed outpt CT Chest images, my interpretation: subtle peripheral opacites in lungs; I do not see anything that looks like septic emboli Objective: Vital Signs Temp Pulse Resp BP Pulse Ox 36.5 C 74 14 132/78 H 98 04/11/16 08:00 04/11/16 08:00 04/11/16 08:00 04/11/16 08:00 04/11/16 08:00 Microbiology 04/10/16 11:30 Blood Panel (PCR) - Final Blood Staph Coagulase Negative 04/08/16 01:49 Urine Culture - Final Urine,Clean Catch Three [place] Types Laboratory Results 04/08/16 01:50 04/08/16 01:50 04/10/16 04/11/16 04/12/16 06:59 06:59 06:59 Intake Total 601 750 Balance 601 750 ICD10 Worksheet Patient Problems: Problems Problem Status Onset Bacteremia Acute Pneumonia Acute
[2016-04-11] MEDS: MONTELUKAST SODIUM 10 MG TAB PO SCH (17:29)
[2016-04-11] MEDS: ALPRAZolam 1 MG TAB PO PRN (22:22)
[2016-04-12] MEDS: SENNOSIDES/DOCUSATE SODIUM TAB PO SCH ×2 (00:01→10:03)
[2016-04-12] MEDS: ceFAZolin 2 GM in D5W 100 ML IV SCH (05:15)
--- NOTE | 2016-04-12 08:46 | WOCRNPDOC ---
WOCRN Advanced Assessment Note - Skin Integrity Problem, Advanced Assess Left Anterior Lower Leg Dressing Type: Super Absorbant Dressing Description: Clean/Dry, Intact Exudate Amount: Moderate Exudate Characteristic(s): Serosanguinous, Thick Integumentary Issue Intervention: Dressing Changed Sally Wound Tissue: Scarred Sally Wound Swelling: None Wound Bed Constitution: Granulation Tissue, Smooth Tissue Wound Edges: Epithelizing Site Measurement - Head-to-Toe Length X Width X Depth (cm): 4.2x3.5x0.2 Skin Integrity Problem Comment: Dressing Slightly adhered to eptithelizing tissue, however wound is healing well. No need for collagen to fill. Will alter orders slightly and round again on Sunday 04/16. Per RN Evette patient is refusing to wear her tubigrip compression socks. Right Anterior Lower Leg Dressing Type: Super Absorbant Dressing Description: Clean/Dry, Intact Exudate Amount: Moderate Exudate Characteristic(s): Serosanguinous, Thick Integumentary Issue Intervention: Dressing Changed Sally Wound Tissue: Macerated Sally Wound Swelling: None Wound Bed Color: Red Wound Bed Constitution: Granulation Tissue Site Measurement - Head-to-Toe Length X Width X Depth (cm): 7x4x0.3 Skin Integrity Problem Comment: Wound with too much moisture. No longer needs honey. Will alter orders to place alginate with Ag+ under super absorbant.
[2016-04-12] MEDS: ENOXAPARIN 40 MG/0.4 ML SYR SC SCH (09:55)
[2016-04-12] MEDS: NICOTINE 21 MG/24 HR PATCH TD SCH (09:55)
[2016-04-12] MEDS: VORTIOXETINE HYDROBROMIDE 20 MG PO SCH (10:10)
[2016-04-12 12:04] LABS: ANTINUCLEAR ANTIBODIES SCREEN 0.21 UNITS (<1.00)
[2016-04-12] MEDS: ALPRAZolam 1 MG TAB PO PRN (13:03)
[2016-04-12] MEDS: ceFAZolin 2 GM/DEXTROSE 100 ML IV SCH ×2 (13:12→22:18)
--- NOTE | 2016-04-12 14:33 | PCMIDPN ---
Assessment/Plan: Assessment: Staph aureus bacteremia-unclear source. Notes from weekend reviewed. Agree after additional history that patient is likely bacteremic from skin source or continued injection use. The leg ulcers appear to be secondary to increased venous pressures and vascular changes secondary to intravenous drug use. Patient did have an episode over the weekend where she was found with used needles in the bathroom. Discussed with patient today the direct relationship between the nonhealing ulcers on her legs and the continued drug use. She was agreeable bit rather dismissive. Agree with a 2 week course of antibiotics given the rapid clearance from the blood stream. Negative transesophageal echocardiogram is reassuring. Coagulase-negative Staphylococcus in repeat blood cultures is a contaminant. Plan: 1. Continue IV cefazolin. 2. Follow repeat blood cultures. Subjective: Patient is resting in her hospital room. She denies any new complaint. She seems a bit groggy and tired. Denies fevers or chills. Objective: Cefazolin #4 Vital Signs Temp Pulse Resp BP Pulse Ox 36.7 C 93 16 138/103 H 99 04/12/16 08:00 04/12/16 08:00 04/12/16 08:00 04/12/16 08:00 04/12/16 08:00 Microbiology 04/10/16 11:30 Blood Panel (PCR) - Final Blood Staph Coagulase Negative Laboratory Results 04/08/16 01:50 04/08/16 01:50 04/11/16 04/12/16 04/13/16 05:59 05:59 05:59 Intake Total 750 Balance 750 ESR 34 MM/HR (0-20) H 04/08/16 01:50 C-Reactive Protein 141.9 mg/L (<10.0) H 04/08/16 01:50 - Physical Exam General Appearance: WD/WN, alert, no apparent distress Respiratory: lungs clear, normal breath sounds, No respiratory distress Cardiac/Chest: regular rate, rhythm, No tachycardia, No systolic murmur, No irregularly irregular Extremities: non-tender, No normal inspection (Bilateral lower extremity hunter ulcers), No inflammation, No erythema Skin: normal color, warm/dry, No rash Neuro/Psych: alert, normal mood/affect, oriented x 3 ICD10 Worksheet Patient Problems: Problems Problem Status Onset Bacteremia Acute Pneumonia Acute
--- NOTE | 2016-04-12 16:30 | HOSPPROG ---
Hospitalist Progress Note Assessment/Plan: DIAGNOSES: 1- MSSA BACTEREMIA 2- MULTIPLE CHRONIC SKIN ULCERS OF LEGS, SUSPECT DUE TO IVDA 3- ONGOING HEROIN USE, WITH OPIATES IN URINE; 4- HIV NEGATIVE 5- I DO NOT THINK SHE HAS AN AUTOIMMUNE ILLNESS, NO SIGN OF ENDOCARDITIS ON SUHAIL 6- I DO NOT THINK SHE HAS SEPTIC PULMONARY EMBOLI ON CT CHEST. 7- MICROCYTIC ANEMIA PRESUMED IRON DEFICIENT BUT NEED TO CHECK IRON LEVELS This morning again the patient and her boyfriend were found together in the bathroom with the door closed and there was apparently a needle and syringe the. Like and insulin type syringe in the bathroom with them. At this point the patient was confronted is now admitting that she has been using hair when here in the hospital although all describe her story below. The boyfriend was asked to leave and apparently has been asked not to come back to the [facility]. The patient has been placed on limited visitations. She has been moved to a room adjacent to the nursing station. I spent approximately 60 minutes at the bedside talking with the patient today. She does admit initially somewhat reluctantly but now openly that she has been using her when for 2 weeks prior to her hospital stay which she says was smoked. She also tells me she has been using her when here in the hospital but says she has been eating it. When I asked her about the syringe she says it was a syringe that was in her backpack and she had not been using it. As but has been discussed in Dr. ender francois noted earlier, we have seen what looks like a recent needle track and her toe, and so the details of the story remains somewhat suspect as she presented to us. The patient tells me that she has been trying to find a way to get away from her when for some time. She says that she had an appointment for an intake into a rehab program but she required a prolonged process of several weeks getting insurance to cover this therapy. Apparently she has just recently accomplish getting insurance coverage and has an appointment for this week for the intake into the program. She will therefore missed that appointment. She tells me that she wants to quit hair when and does not want to use here when or narcotics now. I have told her that her choices would be to continue using her when, in which case I would give her other narcotics here to get her by and so she would leave, or to trying quit hair when in which case I would recommend that we have her do a detox protocol if she starts to withdrawal while here. Because I cannot trust the information she tells me in terms of how much she is actually using or how long she has been using continuously just now I do not really know whether she would withdrawal are not but I suspect she will. She does tell me that she was not using for most of the month of March. I have discussed with her what withdrawal and detox protocol involved, and she is in agreement to use a detox protocol if she starts having withdrawal symptoms. She tells me that she is committed to getting into a rehab program as she leaves here. I recommended she consider going into a residential program, but she says she has legal problems that will prevent that at this time. She tells me that her boyfriend does not use in that he has not been supplying her hair when. She says she brought all here with her. She says she was hiding it from him for a long time but now he no she uses and he is very upset about. When I ask her about family support she says that she has a sister she feels like she might be able to confided in. However she does not feel comfortable come finding in her family even though she feels they are very supportive and that they would continue support her if she knew she was using now. She again requests that we not let her parents or anyone else at this time know that she is using heroin currently PLANS: -continue current coverage for her bacteremia with antibiotics;currently plan 2 weeks, and will not discharge her for the from the hospital with any IV access so she will continue her treatment here -will respect her wishes that notify we not notify her parents of her heroin use -she is now placed in the room adjacent to the nursing station -Her boyfriend will not be allowed to visit the campus at this point -anyone bringing anything in her room will need to have evidence SPECT 1st; she will only be allowed 1 visitor at a time -I reviewed her situation in detail with the nursing staff, will watch very closely for any signs of heroin withdrawal and 1 nose begin will begin detox protocol SUBJECTIVE: No symptoms of fever or pain No nausea or diarrhea Some mild anxiety this morning VITALS: no fever otherwise stable EXAM: alert oriented anxious but no current signs of withdrawal skin warm dry color ok resps easy lungs clear heart reg abd nl IV access site looks good Objective: Vital Signs Temp Pulse Resp BP Pulse Ox 36.7 C 84 16 126/81 H 98 04/12/16 15:43 04/12/16 15:43 04/12/16 15:43 04/12/16 15:43 04/12/16 15:43 Microbiology 04/10/16 11:30 Blood Panel (PCR) - Final Blood Staph Coagulase Negative Laboratory Results 04/08/16 01:50 04/08/16 01:50 04/11/16 04/12/16 04/13/16 06:59 06:59 06:59 Intake Total 750 Balance 750 ICD10 Worksheet Patient Problems: Problems Problem Status Onset Bacteremia Acute Pneumonia Acute
[2016-04-12] MEDS: LORazepam 0.5 MG TAB PO PRN (18:03)
[2016-04-12] MEDS: MONTELUKAST SODIUM 10 MG TAB PO SCH (18:07)
[2016-04-12] MEDS ORDERED: LORazepam 2 MG/ML INJ IVP PRN (18:46)
[2016-04-12] MEDS ORDERED: PROMETHAZINE HCL 25 MG/ML INJ IVP PRN (18:46)
[2016-04-12] MEDS: CYCLOBENZAPRINE 10 MG TAB PO SCH ×2 (19:33→22:26)
[2016-04-12] MEDS: LORazepam 1 MG TAB PO SCH ×2 (19:33→22:26)
[2016-04-12] MEDS: DIPHENOXYLATE/ATROPINE LOMOTIL 1 TAB PO SCH (19:34)
[2016-04-13] MEDS: ONDANSETRON 4 MG/2 ML VIAL IVP PRN ×5 (00:45→23:15)
[2016-04-13] MEDS: LORazepam 1 MG TAB PO SCH ×6 (01:23→21:22)
[2016-04-13] MEDS: traMADol 50 MG TAB PO PRN ×3 (01:23→21:47)
[2016-04-13 04:37] LABS: % IMMATURE GRANULYOCYTES 1.1 % (0.0-1.1); ABSOLUTE IMMATURE GRANULOCYTES 0.09 10^3/uL (0.00-0.10); ADD DIFF? NO; ADD MORPH? NO; ADD SCAN? NO; ATYPICAL LYMPHOCYTE FLAG 0 (0-99); FRAGMENT RBC FLAG 60 (0-99); HEMATOCRIT 28.8 % (38.0-47.0); HEMOGLOBIN 8.8 g/dL (12.6-16.3); LEFT SHIFT FLG 10 (0-99); LIPEMIA HEMOLYSIS FLAG 80 (0-99); MEAN CELL HEMOGLOBIN 22.9 pg (27.9-34.1); MEAN CELL HEMOGLOBIN CONCENTR. 30.6 g/dL (32.4-36.7); MEAN CELL VOLUME 74.8 fL (81.5-99.8); MEAN PLATELET VOLUME 11.8 fL (8.7-11.7); PLATELET CLUMPS FLAG 0 (0-99); PLATELET COUNT 465 10^3/uL (150-400); RED BLOOD CELL COUNT 3.85 10^6/uL (4.18-5.33); RED CELL DISTRIBUTION WIDTH 17.4 % (11.5-15.2)
[2016-04-13 05:21] LABS: ANION GAP 9 mEq/L (8-16); CALCIUM 9.3 mg/dL (8.5-10.4); CARBON DIOXIDE 26 mEq/l (22-31); CHLORIDE 109 mEq/L (97-110); CREATININE 0.6 mg/dL (0.6-1.0); GLOMERULAR FILTRATION RATE > 60; GLUCOSE 104 mg/dL (70-100); POTASSIUM 4.7 mEq/L (3.5-5.2); SODIUM 144 mEq/L (134-144)
[2016-04-13 05:30] LABS: % SATURATION 6 % (20-55); TOTAL IRON BINDING CAPACITY 304 ug/dL (260-490)
[2016-04-13] MEDS: ceFAZolin 2 GM/DEXTROSE 100 ML IV SCH ×3 (05:47→21:22)
[2016-04-13] MEDS: DIPHENOXYLATE/ATROPINE LOMOTIL 1 TAB PO SCH ×4 (05:48→20:28)
[2016-04-13 05:56] LABS: FERRITIN - BCH 12.7 ng/mL (6.2-264.0)
--- NOTE | 2016-04-13 09:38 | PCMIDPN ---
Assessment/Plan: Assessment/Plan: 1. MSSa bacteremia - positive on 04/06/16. f/u blood cx from 04/08/16 ngtd. Blood cx from 04/10/16 with CoNS (contaminant, 1/4 bottles) - SUHAIL with no vegetations. -currently on Ancef 2g q8- -HIV/HCV neg. immune to Hepatitis B 2. Chris ulcers: -Dressed. appreciate wound care 3. Hx IVDA Meds Ancef 2g q8- #6 from negative blood cx. Subjective: Afebrile. TAchycardic. STates she feels anxious right now. As we were talking and she was taking slower breaths heart rate did slow down but remained at upper 90's/low 100's. Denies sob, abd pain or diarrhea. Objective: Vital Signs Temp Pulse Resp BP Pulse Ox 36.7 C 76 18 132/85 H 96 04/13/16 07:25 04/13/16 07:25 04/13/16 07:25 04/13/16 07:25 04/13/16 07:25 Microbiology 04/08/16 02:18 Blood Culture - Final Blood 04/08/16 01:45 Blood Culture - Final Blood 04/10/16 11:30 Blood Panel (PCR) - Final Blood Staph Coagulase Negative Laboratory Results 04/13/16 04:00 04/13/16 04:00 04/12/16 04/13/16 04/14/16 05:59 05:59 05:59 Intake Total 500 110 Balance 500 110 ESR 34 MM/HR (0-20) H 04/08/16 01:50 C-Reactive Protein 141.9 mg/L (<10.0) H 04/08/16 01:50 - Physical Exam General Appearance: alert, no apparent distress Respiratory: lungs clear Cardiac/Chest: regular rate, rhythm, tachycardia Extremities: other (legs dressed) Abdomen: normal bowel sounds, non-tender, soft, No distended Skin: other (legs dressed) ICD10 Worksheet Patient Problems: Problems Problem Status Onset Bacteremia Acute Pneumonia Acute
[2016-04-13] MEDS: CYCLOBENZAPRINE 10 MG TAB PO SCH ×3 (09:41→21:22)
[2016-04-13] MEDS: ENOXAPARIN 40 MG/0.4 ML SYR SC SCH (09:42)
[2016-04-13] MEDS: NICOTINE 21 MG/24 HR PATCH TD SCH (09:43)
[2016-04-13] MEDS: VORTIOXETINE HYDROBROMIDE 20 MG PO SCH (09:43)
--- NOTE | 2016-04-13 10:00 | HOSPPROG ---
Hospitalist Progress Note Assessment/Plan: This patient with a long history of heroin abuse and severe anxiety disorder comes into the hospital with fever and having had positive blood cultures for MSSA in the outpatient setting. She has a number of chronic nonhealing ulcers on her legs that appear most likely to be related to injection heroin use. She has been getting wound care and outpatient clinic down in [place]. She is admitted to the hospital at this time and treated with MSSA bacteremia. Initially she did not admit to current heroin use but it became clear to us that she was still using and in fact was using hair when here in the hospital. We have now surge her room, put her in her room adjacent to the nursing station , and have not allowed her boyfriend to return to hospital if we suspect that he has been supplying her (she denies that he was supplying her). As she is using heroin ongoing it has been elected to not send her out of the hospital with any IV access, and treat her here for a 2 week course of IV antibiotics. Additionally I had long conversations with her about her hair when use and she is stating strong commitment to quitting. In addition she states that she has recently gone through a prolonged process of getting insurance company approval for a rehabilitation program. Therefore is elected at this time to have the patient stop using narcotics and to is a detoxification protocol which was started on April 12. Is anticipated she will probably withdrawal through approximately April 15 or . So far she was doing well with this and having good control of symptoms. We will need to have social workers facilitate getting her into the rehabilitation program upon discharge. The patient has severe anxiety disorder and partly related to this she has requested that we not discuss her heroin use with her parents. She knows that her parents are very aware of her long-term use issues but she believes that they think she is not using currently. My suspicion is that her parents actually do know that she is currently using. She thinks her parents are very supportive and she is allowing them visits with her here. DIAGNOSES: 1- MSSA BACTEREMIA 2- MULTIPLE CHRONIC SKIN ULCERS OF LEGS, SUSPECT DUE TO IVDA 3- ACUTE WITHDRAWAL FROM HEROIN 4- ONGOING HEROIN USE, WITH OPIATES IN URINE; 5- HIV NEGATIVE 6- I DO NOT THINK SHE HAS AN AUTOIMMUNE ILLNESS, NO SIGN OF ENDOCARDITIS ON SUHAIL 7- I DO NOT THINK SHE HAS SEPTIC PULMONARY EMBOLI ON CT CHEST. 8- MICROCYTIC ANEMIA WITH IRON DEFICIENCY She requests that we not let her parents or anyone else at this time know that she is using heroin currently PLANS: -continue narcotic detoxification protocol with clonidine, benzodiazepines, antidiarrheals, antiemetics, muscle relaxers -continue current coverage for her bacteremia with antibiotics;currently plan 2 weeks, and not to discharge her for the from the hospital with any IV access, so she will continue her treatment here -will respect her wishes that notify we not notify her parents of her heroin use -she is now placed in the room adjacent to the nursing station -anyone bringing anything in her room will need to have the items inspected 1st ; she will only be allowed 1 visitor at a time -will begin iron replacement therapy at this point, suspect this is most likely menstrual bleeding related > 35 minutes spent with the patient at bedside today SUBJECTIVE: Still complains of anxiety despite ongoing benzodiazepines and other medicines, but her diarrhea has decreased significantly today No chills or sweats VITALS: no fever, is tachycardic at 120 beats per minute on my examination EXAM: Very somnolent but easily arousable, oriented, states anxiety skin warm dry; currently no pyloerection color ok resps easy lungs clear heart reg abd nl Leg wounds in dressings IV access site looks good Laboratory data: Iron studies now back confirming iron deficiency anemia Objective: Vital Signs Temp Pulse Resp BP Pulse Ox 36.7 C 76 18 132/85 H 96 04/13/16 07:25 04/13/16 07:25 04/13/16 07:25 04/13/16 09:41 04/13/16 07:25 Microbiology 04/08/16 02:18 Blood Culture - Final Blood 04/08/16 01:45 Blood Culture - Final Blood 04/10/16 11:30 Blood Panel (PCR) - Final Blood Staph Coagulase Negative Laboratory Results 04/13/16 04:00 04/13/16 04:00 04/12/16 04/13/16 04/14/16 06:59 06:59 06:59 Intake Total 610 Balance 610 ICD10 Worksheet Patient Problems: Problems Problem Status Onset Bacteremia Acute Pneumonia Acute
[2016-04-13] MEDS: MONTELUKAST SODIUM 10 MG TAB PO SCH (16:15)
[2016-04-13] MEDS: ONDANSETRON DISINTEGRATING 4 MG TAB PO PRN (21:47)
[2016-04-14] MEDS: LORazepam 1 MG TAB PO SCH ×6 (01:58→21:13)
[2016-04-14] MEDS: DIPHENOXYLATE/ATROPINE LOMOTIL 1 TAB PO SCH ×4 (05:36→20:07)
[2016-04-14] MEDS: ceFAZolin 2 GM/DEXTROSE 100 ML IV SCH ×3 (05:36→21:16)
[2016-04-14 06:50] LABS: % IMMATURE GRANULYOCYTES 1.8 % (0.0-1.1); ABSOLUTE IMMATURE GRANULOCYTES 0.17 10^3/uL (0.00-0.10); ADD DIFF? NO; ADD MORPH? NO; ADD SCAN? NO; ATYPICAL LYMPHOCYTE FLAG 0 (0-99); FRAGMENT RBC FLAG 60 (0-99); HEMATOCRIT 27.7 % (38.0-47.0); HEMOGLOBIN 8.7 g/dL (12.6-16.3); LEFT SHIFT FLG 10 (0-99); LIPEMIA HEMOLYSIS FLAG 80 (0-99); MEAN CELL HEMOGLOBIN CONCENTR. 31.4 g/dL (32.4-36.7); MEAN CELL VOLUME 73.1 fL (81.5-99.8); MEAN PLATELET VOLUME 9.8 fL (8.7-11.7); PLATELET CLUMPS FLAG 10 (0-99); PLATELET COUNT 423 10^3/uL (150-400); RED BLOOD CELL COUNT 3.79 10^6/uL (4.18-5.33); RED CELL DISTRIBUTION WIDTH 17.6 % (11.5-15.2)
[2016-04-14 07:18] LABS: ANION GAP 10 mEq/L (8-16); CARBON DIOXIDE 25 mEq/l (22-31); CHLORIDE 109 mEq/L (97-110); CREATININE 0.7 mg/dL (0.6-1.0); GLOMERULAR FILTRATION RATE > 60; GLUCOSE 121 mg/dL (70-100); POTASSIUM 4.1 mEq/L (3.5-5.2); SODIUM 144 mEq/L (134-144)
[2016-04-14] MEDS: ENOXAPARIN 40 MG/0.4 ML SYR SC SCH (10:05)
[2016-04-14] MEDS: CYCLOBENZAPRINE 10 MG TAB PO SCH ×3 (10:05→21:13)
[2016-04-14] MEDS: NICOTINE 21 MG/24 HR PATCH TD SCH (10:06)
[2016-04-14] MEDS: VORTIOXETINE HYDROBROMIDE 20 MG PO SCH (10:07)
[2016-04-14] MEDS: ONDANSETRON 4 MG/2 ML VIAL IVP PRN ×3 (10:26→22:27)
[2016-04-14] MEDS: ALPRAZolam 1 MG TAB PO PRN ×2 (12:49→23:12)
[2016-04-14] MEDS: traMADol 50 MG TAB PO PRN ×2 (12:49→20:09)
[2016-04-14 13:46] LABS: c-ANCA Negative (Negative); p-ANCA Positive (Negative)
[2016-04-14] MEDS: MONTELUKAST SODIUM 10 MG TAB PO SCH (17:41)
--- NOTE | 2016-04-14 17:45 | PCMIDPN ---
Assessment/Plan: Assessment/Plan: * MSSA Bacteremia: SUHAIL negative for vegetation and bacteremia rapidly cleared. Likely related to skin source with open wound and injection drug use. Planning 2 weeks of cefazolin as inpatient as active drug use precludes safe outpatient administration. * Lower extremity wounds: Appearance improved. Continue local wound care. 04/14/16 17:41 Subjective: Patient feels better. No diarrhea. No skin rash on cefazolin. Objective: Vital Signs Temp Pulse Resp BP Pulse Ox 36.9 C 85 14 131/87 H 96 04/14/16 15:39 04/14/16 15:39 04/14/16 15:39 04/14/16 15:39 04/14/16 15:39 Laboratory Results 04/14/16 06:30 04/14/16 06:30 04/13/16 04/14/16 04/15/16 05:59 05:59 05:59 Intake Total 500 560 Balance 500 560 ESR 34 MM/HR (0-20) H 04/08/16 01:50 C-Reactive Protein 141.9 mg/L (<10.0) H 04/08/16 01:50 Cefazolin #6 (stop date 04/22/16) Blood cultures 04/08/16 no growth - Physical Exam General Appearance: alert, no apparent distress EENT: pharynx normal, No conjunctival petechiae Respiratory: lungs clear, No respiratory distress Cardiac/Chest: regular rate, rhythm, systolic murmur (2/6 left upper sternal border) Extremities: other (Wounds over both anterior shins improved in appearance without surrounding cellulitis) Abdomen: non-tender, No distended Skin: No embolic lesions - Line/s RUE PICC Lines: No drainage, No erythema ICD10 Worksheet Patient Problems: Problems Problem Status Onset Bacteremia Acute Pneumonia Acute
--- NOTE | 2016-04-14 18:11 | HOSPPROG ---
Hospitalist Progress Note Assessment/Plan: * MSSA bacteremia - skin source - likely due to ongoing IVDA -given IVDA history - inpatient until 04/22 as can't go home with PICC * Ongoing IVDA - found with needles in bathroom * Leg wounds -healing nicely under our care -outpatient wound center reports non-compliance with dressings * Opiate detox -complete regimen in am * Anxiety * P anca + -unclear significance * Pulmonary infiltrates -suspect due to black tar heroin inhalation Subjective: no new complaints Objective: Vital Signs Temp Pulse Resp BP Pulse Ox 36.9 C 85 14 131/87 H 96 04/14/16 15:39 04/14/16 15:39 04/14/16 15:39 04/14/16 15:39 04/14/16 15:39 Laboratory Results 04/14/16 06:30 04/14/16 06:30 04/13/16 04/14/16 04/15/16 05:59 05:59 05:59 Intake Total 500 560 Balance 500 560 - Physical Exam Constitutional: no apparent distress, appears nourished, not in pain Cardiovascular: regular rate and rhythym, no murmur, rub, or gallop Respiratory: no respiratory distress, no rales or rhonchi, clear to auscultation Gastrointestinal: normoactive bowel sounds, soft, non-tender abdomen, no palpable masses Skin: no rashes or abrasions, no fluctuance, no induration, other (wound look good) Neurologic: AAOx3, sensation intact bilaterally Psychiatric: interacting appropriately, not anxious, not encephalopathic, thought process linear ICD10 Worksheet Patient Problems: Problems Problem Status Onset Bacteremia Acute Pneumonia Acute
[2016-04-15] MEDS: LORazepam 1 MG TAB PO SCH ×2 (01:36→05:44)
[2016-04-15] MEDS: DIPHENOXYLATE/ATROPINE LOMOTIL 1 TAB PO SCH (05:44)
[2016-04-15] MEDS: ceFAZolin 2 GM/DEXTROSE 100 ML IV SCH ×3 (05:46→22:30)
[2016-04-15] MEDS ORDERED: DIPHENOXYLATE/ATROPINE LOMOTIL 1 TAB PO PRN (08:39)
[2016-04-15] MEDS ORDERED: CYCLOBENZAPRINE 10 MG TAB PO PRN (08:39)
[2016-04-15] MEDS ORDERED: LORazepam 1 MG TAB PO PRN (08:40)
[2016-04-15] MEDS: ENOXAPARIN 40 MG/0.4 ML SYR SC SCH (09:57)
[2016-04-15] MEDS: VORTIOXETINE HYDROBROMIDE 20 MG PO SCH (09:57)
[2016-04-15] MEDS: traMADol 50 MG TAB PO PRN ×2 (09:57→18:26)
[2016-04-15] MEDS: FERROUS SULFATE 325 MG TAB PO SCH ×2 (09:57→19:37)
[2016-04-15] MEDS: NICOTINE 21 MG/24 HR PATCH TD SCH (09:57)
[2016-04-15] MEDS: ONDANSETRON 4 MG/2 ML VIAL IVP PRN ×2 (10:54→19:32)
--- NOTE | 2016-04-15 16:01 | HOSPPROG ---
Hospitalist Progress Note Assessment/Plan: * MSSA bacteremia - skin source - likely due to ongoing IVDA -given IVDA history - inpatient until 04/22 as can't go home with PICC * Ongoing IVDA - found with needles in bathroom * Leg wounds -healing nicely under our care -outpatient wound center reports non-compliance with dressings * Opiate detox -resolved -intensive outpatient rehab after discharge * Anxiety - severe * P anca + -unclear significance * Pulmonary infiltrates -suspect due to black tar heroin inhalation Subjective: no new complaints Objective: Vital Signs Temp Pulse Resp BP Pulse Ox 36.7 C 98 16 132/88 H 99 04/15/16 15:35 04/15/16 15:35 04/15/16 15:35 04/15/16 15:35 04/15/16 15:35 Laboratory Results 04/14/16 06:30 04/14/16 06:30 04/14/16 04/15/16 04/16/16 05:59 05:59 05:59 Intake Total 560 500 Balance 560 500 - Physical Exam Constitutional: no apparent distress, appears nourished, not in pain Cardiovascular: regular rate and rhythym, no murmur, rub, or gallop Respiratory: no respiratory distress, no rales or rhonchi, clear to auscultation Gastrointestinal: normoactive bowel sounds, soft, non-tender abdomen, no palpable masses Skin: no induration Neurologic: AAOx3 Psychiatric: interacting appropriately, flat affect, No encephalopathic, No agitated, No poor insight, No poor judgement, No poor memory ICD10 Worksheet Patient Problems: Problems Problem Status Onset Bacteremia Acute Pneumonia Acute
[2016-04-15] MEDS: MONTELUKAST SODIUM 10 MG TAB PO SCH (17:16)
[2016-04-15] MEDS: ALPRAZolam 1 MG TAB PO PRN (17:16)
[2016-04-16] MEDS: ALPRAZolam 1 MG TAB PO PRN (01:09)
[2016-04-16] MEDS: ceFAZolin 2 GM/DEXTROSE 100 ML IV SCH ×3 (05:11→22:51)
--- NOTE | 2016-04-16 09:25 | PCMIDPN ---
Assessment/Plan: 1. Staph aureus bacteremia: Continue Ancef as is through April 22. Likely be discharged later in the day on the , and this was conveyed to the patient, as she asked me "when can I leave on the ?" No new recommendations. Please call infectious disease over the weekend with any new issues, otherwise, we will see the patient on Tuesday. 2. Hunter ulcerations: Continue wound care. These are healing nicely. Suspect P ANCA positivity is not significant. 04/16/16 09:25 Subjective: Says she feels tired, otherwise no complaints. No diarrhea, or symptoms suggestive of narcotic withdrawal. Objective: Ancef 2 g IV q.8 hours through April 22 Afebrile Vital Signs Temp Pulse Resp BP Pulse Ox 36.8 C 72 16 125/90 H 97 04/16/16 08:00 04/16/16 08:00 04/16/16 08:00 04/16/16 08:00 04/16/16 08:00 Microbiology 04/10/16 10:55 Blood Culture - Final Blood Laboratory Results 04/14/16 06:30 04/14/16 06:30 04/15/16 04/16/16 04/17/16 05:59 05:59 05:59 Intake Total 500 Balance 500 ESR 34 MM/HR (0-20) H 04/08/16 01:50 C-Reactive Protein 141.9 mg/L (<10.0) H 04/08/16 01:50 No new microbiology - Physical Exam General Appearance: other (Looks tired.) EENT: pharynx normal, No scleral icterus, No thrush Respiratory: lungs clear Cardiac/Chest: regular rate, rhythm, No systolic murmur Extremities: other (I did not unwrap her hunter wound dressings. PICC line right upper extremity with no erythema swelling or tenderness) Skin: No rash ICD10 Worksheet Patient Problems: Problems Problem Status Onset Bacteremia Acute Pneumonia Acute
[2016-04-16] MEDS: ENOXAPARIN 40 MG/0.4 ML SYR SC SCH (09:36)
[2016-04-16] MEDS: FERROUS SULFATE 325 MG TAB PO SCH ×2 (09:36→21:00)
[2016-04-16] MEDS: VORTIOXETINE HYDROBROMIDE 20 MG PO SCH (09:37)
[2016-04-16] MEDS: NICOTINE 21 MG/24 HR PATCH TD SCH ×2 (09:37→15:52)
[2016-04-16] MEDS: ONDANSETRON 4 MG/2 ML VIAL IVP PRN ×2 (10:12→22:51)
[2016-04-16] MEDS: LOPERAMIDE HCL 2 MG CAP PO PRN (13:37)
--- NOTE | 2016-04-16 15:22 | WOCRNPDOC ---
WOCRN Advanced Assessment Note - Skin Integrity Problem, Advanced Assess Right Anterior Lower Leg Dressing Type: Alginate (Melgisorb AG), Kerlix, Tegaderm Absorbant Dressing Description: Saturated Exudate Amount: Moderate Exudate Color: Reddish/Yellow Exudate Characteristic(s): Serosanguinous Integumentary Issue Intervention: Dressing Changed Michelle Wound Tissue: Macerated, Scarred Michelle Wound Swelling: Mild Wound Bed Color: Red Wound Bed Constitution: Granulation Tissue, Smooth Tissue Skin Integrity Problem Comment: Existing Tegaderm absorbent dressing was saturated, causing exudate to be trapped against skin. Michelle-wound maceration noted along circumference of wound, extending out 0.3cm. Wound bed itself is a mix of granulating and smooth tissue, highly exudative, w/ no apparent necrosis noted. Skin prepped michelle-wound x 2, and placed Melgisorb alginate into wound bed w/ no overlap onto periwound tissue. Covered w/ Tegaderm Superabsorbent in patient's wound care supplies, and secured w/ Kerlix and stretch net. Will have wound RN follow up with patient on Tuesday to re-assess. Left Anterior Lower Leg Dressing Type: Kerlix, Tegaderm Absorbant Dressing Description: Saturated Exudate Amount: Moderate Exudate Color: Reddish/Yellow Exudate Characteristic(s): Serosanguinous Integumentary Issue Intervention: Dressing Changed Michelle Wound Tissue: Macerated, Swollen (mild), Scarred Michelle Wound Swelling: Mild Wound Bed Color: Brown, Red, Yellow Wound Bed Constitution: Smooth Tissue (20%), Adhered Slough (80%) Skin Integrity Problem Comment: Existing dressing saturated, trapping exudate against wound and michelle-wound tissues. Maceration extends onto michelle-wound tissue from wound edge to 0.4cm circumferentially. Wound bed comprised predominantly of well-adhered dockery/yellow slough, w/ some scattered smooth tissue noted throughout. Changed order to a honey alginate to facilitate autolytic debridement, and covered w/ Tegaderm Superabsorbent. Report given to fitter armamentPRASANNA Greenberg.
--- NOTE | 2016-04-16 15:54 | HOSPPROG ---
Hospitalist Progress Note Assessment/Plan: * MSSA bacteremia - skin source - likely due to ongoing IVDA -given IVDA history - inpatient until 04/22 as can't go home with PICC * Ongoing IVDA - found with needles in bathroom -boyfriend not allowed on campus -parents are not aware of her recent drug use, patient requests confidentiality * Leg wounds - related to her IVDA/poor care -healing nicely under our care -outpatient wound center reports non-compliance with dressings * Opiate detox -resolved -intensive outpatient rehab after discharge * Anxiety - severe * P anca +, not significant -PR3 and MPO negative * Pulmonary infiltrates -suspect due to black tar heroin inhalation Subjective: No new complaints Objective: Vital Signs Temp Pulse Resp BP Pulse Ox 36.7 C 98 18 136/87 H 99 04/16/16 15:16 04/16/16 15:16 04/16/16 15:16 04/16/16 15:16 04/16/16 15:16 Microbiology 04/10/16 11:30 Blood Culture - Final Blood Staphylococcus Sp Coag Neg Blood Panel (PCR) - Final Staph Coagulase Negative 04/10/16 10:55 Blood Culture - Final Blood Laboratory Results 04/14/16 06:30 04/14/16 06:30 04/15/16 04/16/16 04/17/16 05:59 05:59 05:59 Intake Total 500 Balance 500 - Physical Exam Constitutional: no apparent distress, appears nourished, not in pain Cardiovascular: regular rate and rhythym, no murmur, rub, or gallop Respiratory: no respiratory distress, no rales or rhonchi, clear to auscultation Skin: warm, other (wounds dressed nicely, no drainage), No rash Neurologic: AAOx3, sensation intact bilaterally Psychiatric: interacting appropriately, not anxious, not encephalopathic, thought process linear, flat affect ICD10 Worksheet Patient Problems: Problems Problem Status Onset Bacteremia Acute Pneumonia Acute
[2016-04-16] MEDS: MONTELUKAST SODIUM 10 MG TAB PO SCH (17:08)
[2016-04-16] MEDS: traMADol 50 MG TAB PO PRN (17:08)
[2016-04-17] MEDS: FERROUS SULFATE 325 MG TAB PO SCH ×3 (01:11→19:50)
[2016-04-17] MEDS: ALPRAZolam 1 MG TAB PO PRN ×2 (01:11→15:45)
[2016-04-17] MEDS: ONDANSETRON 4 MG/2 ML VIAL IVP PRN ×3 (03:57→19:50)
[2016-04-17] MEDS: ceFAZolin 2 GM/DEXTROSE 100 ML IV SCH ×3 (06:19→21:50)
[2016-04-17] MEDS: ENOXAPARIN 40 MG/0.4 ML SYR SC SCH (08:03)
[2016-04-17] MEDS: NICOTINE 21 MG/24 HR PATCH TD SCH (08:04)
[2016-04-17] MEDS: VORTIOXETINE HYDROBROMIDE 20 MG PO SCH (09:23)
[2016-04-17] MEDS: LOPERAMIDE HCL 2 MG CAP PO PRN ×2 (09:23→15:45)
--- NOTE | 2016-04-17 11:11 | HOSPPROG ---
Hospitalist Progress Note Assessment/Plan: 26y female hx of IVDA. This is my first encounter with this pt. Chart reviewed. D/W Dr Aragon. * MSSA bacteremia - skin source - likely due to ongoing IVDA -given IVDA history - inpatient until 04/22 as can't go home with PICC * Ongoing IVDA - found with needles in bathroom -boyfriend not allowed on campus -parents are not aware of her recent drug use, patient requests confidentiality * Diarrhea - check stool for C.Diff -sudden onset yesterday * Leg wounds - related to her IVDA/poor care -healing nicely under our care -outpatient wound center reports non-compliance with dressings * Opiate detox -resolved -intensive outpatient rehab after discharge - D/W CM * Anxiety - severe * P anca +, not significant -PR3 and MPO negative * 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 Complains of diarrhea with abdominal cramping. Father at bedside. No specific pain complaints. Objective: Vital Signs Temp Pulse Resp BP Pulse Ox 36.9 C 80 20 134/85 H 98 04/17/16 07:47 04/17/16 07:47 04/17/16 07:47 04/17/16 07:47 04/17/16 07:47 Microbiology 04/10/16 11:30 Blood Culture - Final Blood Staphylococcus Sp Coag Neg Blood Panel (PCR) - Final Staph Coagulase Negative 04/10/16 10:55 Blood Culture - Final Blood Laboratory Results 04/14/16 06:30 04/14/16 06:30 04/16/16 04/17/16 04/18/16 05:59 05:59 06:59 Intake Total 220 Balance 220 - Physical Exam Constitutional: appears nourished, not in pain, chronically ill appearing Eyes: PERRL, anicteric sclera, EOMI Ears, Nose, Mouth, Throat: moist mucous membranes, hearing normal, ears appear normal Cardiovascular: No JVD, No tachycardia, No edema Respiratory: no respiratory distress, no rales or rhonchi, clear to auscultation Gastrointestinal: No tenderness, No ascites, No guarding Skin: warm, normal color, induration Musculoskeletal: normal joint ROM, no joint effusions, generalized weakness Neurologic: AAOx3 Psychiatric: interacting appropriately, not anxious, not encephalopathic, poor insight ICD10 Worksheet Patient Problems: Problems Problem Status Onset Bacteremia Acute Pneumonia Acute
[2016-04-17] MEDS: traMADol 50 MG TAB PO PRN (12:14)
[2016-04-17] MEDS: ACIDOPH PO SCH (16:09)
[2016-04-17] MEDS: PARACASEI B LACTIS PO SCH (16:09)
[2016-04-17] MEDS: MONTELUKAST SODIUM 10 MG TAB PO SCH (17:33)
[2016-04-18] MEDS: ceFAZolin 2 GM/DEXTROSE 100 ML IV SCH ×3 (05:57→21:28)
[2016-04-18] MEDS: ONDANSETRON 4 MG/2 ML VIAL IVP PRN ×2 (05:57→19:47)
[2016-04-18] MEDS: FERROUS SULFATE 325 MG TAB PO SCH ×2 (08:34→21:28)
[2016-04-18] MEDS: LOPERAMIDE HCL 2 MG CAP PO PRN (08:34)
[2016-04-18] MEDS: NICOTINE 21 MG/24 HR PATCH TD SCH (08:34)
[2016-04-18] MEDS: ENOXAPARIN 40 MG/0.4 ML SYR SC SCH (08:35)
[2016-04-18] MEDS: ACIDOPH PO SCH (09:38)
[2016-04-18] MEDS: VORTIOXETINE HYDROBROMIDE 20 MG PO SCH (09:38)
[2016-04-18] MEDS: PARACASEI B LACTIS PO SCH (09:38)
--- NOTE | 2016-04-18 11:49 | HOSPPROG ---
Hospitalist Progress Note Assessment/Plan: 26y female hx of IVDA. This is my first encounter with this pt. Chart reviewed. * MSSA bacteremia - skin source - likely due to ongoing IVDA -given IVDA history - inpatient until 04/22 as can't go home with PICC * Ongoing IVDA - found with needles in bathroom -boyfriend not allowed on campus -parents are not aware of her recent drug use, patient requests confidentiality * Diarrhea - C.Diff neg -cont supportive care * Leg wounds - related to her IVDA/poor care -healing nicely under our care -outpatient wound center reports non-compliance with dressings * Opiate detox -resolved -intensive outpatient rehab after discharge - D/W CM * Anxiety - severe * P anca +, not significant -PR3 and MPO negative * 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 Still some diarrhea. No other issues. Objective: Vital Signs Temp Pulse Resp BP Pulse Ox 36.7 C 93 18 133/86 H 97 04/18/16 08:02 04/18/16 08:02 04/18/16 08:02 04/18/16 08:02 04/18/16 08:02 Laboratory Results 04/14/16 06:30 04/14/16 06:30 04/17/16 04/18/16 04/19/16 04:59 05:59 05:59 Intake Total 110 Output Total Balance 110 - Physical Exam Constitutional: no apparent distress, appears nourished Eyes: PERRL, anicteric sclera Ears, Nose, Mouth, Throat: moist mucous membranes, hearing normal Cardiovascular: No JVD, No edema Respiratory: no respiratory distress, no rales or rhonchi Gastrointestinal: No tenderness, No ascites Skin: warm, normal color Musculoskeletal: full muscle strength, no joint effusions Neurologic: AAOx3 Psychiatric: not anxious, not encephalopathic, poor insight ICD10 Worksheet Patient Problems: Problems Problem Status Onset Bacteremia Acute Pneumonia Acute
[2016-04-18] MEDS: ALPRAZolam 1 MG TAB PO PRN ×2 (14:21→23:49)
--- NOTE | 2016-04-18 16:38 | WOCRNPDOC ---
WOCRN Advanced Assessment Note - Skin Integrity Problem, Advanced Assess Right Anterior Lower Leg Dressing Type: Alginate (Melgisorb), Other (Tegaderm Super-absorbent) Other Dressing Type: Tegaderm Super-absorbent Dressing Description: Clean/Dry, Not Intact Exudate Amount: None Integumentary Issue Intervention: Dressing Changed (Allevyn), Dressing Removed ( (previous)) Wound Bed Color: Red Wound Bed Constitution: Granulation Tissue (trending towards hypergranulation) Wound Edges: Epithelizing Site Odor: None Skin Integrity Problem Comment: Melgisorb was completely dried and adhered into wound bed. Moistened with sterile NS to remove, revealing clean, coarse granulation tissue across the wound bed, and epithelial development at margin. No further evidence of excess exudate, therefore a protective Allevyn dressing was applied after reinforcing periwound with skin prep. PRASANNA Feliz present. Left Anterior Lower Leg Dressing Type: Alginate (honey), Kerlix, Other (Tegaderm Super-absorbent) Other Dressing Type: Tegaderm Super-absorbent Dressing Description: Clean/Dry, Not Intact (honey alginate had slipped out of wound bed) Exudate Amount: Scant Exudate Color: Clear Integumentary Issue Intervention: Dressing Changed (to Replicare hydrocolloid), Dressing Removed ((previous) ) Sally Wound Tissue: Intact Sally Wound Swelling: None Wound Bed Color: Grey Eagle, Yellow Wound Bed Constitution: Smooth Tissue, Adhered Slough Wound Edges: Attached, Scarred (cheloid) Site Odor: None Skin Integrity Problem Comment: Site was dry, with yellow slough adhered to cheloid scar tissue, generating an irregular epithelial surface. Cleaned site using sterile NS and gauze; Applied skin prep to periwound and hydrocolloid to cover entire area, to encourage autolytic debridement of remaining slough. Explained care to patient and father; answered questions; PRASANNA Feliz present to assist.
[2016-04-18] MEDS: traMADol 50 MG TAB PO PRN (17:10)
[2016-04-18] MEDS: MONTELUKAST SODIUM 10 MG TAB PO SCH (17:11)
[2016-04-18] MEDS: FAMOTIDINE 20 MG TAB PO SCH (19:47)
[2016-04-19] MEDS: ceFAZolin 2 GM/DEXTROSE 100 ML IV SCH ×3 (06:04→22:17)
[2016-04-19] MEDS: ONDANSETRON 4 MG/2 ML VIAL IVP PRN ×4 (06:04→22:17)
[2016-04-19] MEDS: VORTIOXETINE HYDROBROMIDE 20 MG PO SCH (08:07)
[2016-04-19] MEDS: FAMOTIDINE 20 MG TAB PO SCH (08:07)
[2016-04-19] MEDS: NICOTINE 21 MG/24 HR PATCH TD SCH (08:07)
[2016-04-19] MEDS: FERROUS SULFATE 325 MG TAB PO SCH ×2 (08:07→20:26)
[2016-04-19] MEDS: PARACASEI B LACTIS PO SCH (08:07)
[2016-04-19] MEDS: ENOXAPARIN 40 MG/0.4 ML SYR SC SCH (08:07)
[2016-04-19] MEDS: ACIDOPH PO SCH (08:07)
--- NOTE | 2016-04-19 08:38 | HOSPPROG ---
Hospitalist Progress Note Assessment/Plan: 26y female hx of IVDA. This is my first encounter with this pt. Chart reviewed. Reviewed her care with Dr Mendoza/ CARIDAD BERNAL. * MSSA bacteremia - skin source - likely due to ongoing IVDA -given IVDA history - inpatient until 04/22 as can't go home with PICC * Ongoing IVDA - found with needles in bathroom -boyfriend not allowed on campus -parents are not aware of her recent drug use, patient requests confidentiality *anemia - most likely due to acute illness/ will follow * Diarrhea - C.Diff neg -cont supportive care * Leg wounds - related to her IVDA/poor care -healing nicely under our care -outpatient wound center reports non-compliance with dressings * Opiate detox -resolved -intensive outpatient rehab after discharge * Anxiety - severe -have asked Jerri Kline / behavioral RN to see patient *nausea -patient says severe -nursing staff has not seen her have any emesis -no relief with Zofran -unclear if r/t dad at bedside -asked nursing staff to get patient OOB, trial of tea * P anca +, not significant -PR3 and MPO negative * 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 Objective: Vital Signs Temp Pulse Resp BP Pulse Ox 36.7 C 87 16 130/100 H 98 04/19/16 07:40 04/19/16 07:40 04/19/16 07:40 04/19/16 08:11 04/19/16 07:40 Laboratory Results 04/14/16 06:30 04/14/16 06:30 04/18/16 04/19/16 04/20/16 05:59 05:59 05:59 Intake Total 220 108 Output Total Balance 220 108 - Physical Exam Constitutional: uncomfortable Eyes: PERRL Ears, Nose, Mouth, Throat: hearing normal Cardiovascular: regular rate and rhythym Respiratory: no respiratory distress Gastrointestinal: normoactive bowel sounds, soft, non-tender abdomen, No tenderness Skin: warm Musculoskeletal: full muscle strength Neurologic: AAOx3 Psychiatric: other (very quiet and withdrawn), No interacting appropriately ICD10 Worksheet Patient Problems: Problems Problem Status Onset Bacteremia Acute Pneumonia Acute
[2016-04-19] MEDS: ONDANSETRON DISINTEGRATING 4 MG TAB PO PRN (08:50)
[2016-04-19] MEDS: ALPRAZolam 1 MG TAB PO PRN ×2 (10:31→20:25)
--- NOTE | 2016-04-19 14:02 | PCMIDPN ---
Assessment/Plan: Assessment/Plan: * MSSA Bacteremia: SUHAIL negative for vegetation and bacteremia rapidly cleared. Likely related to skin source with open wound and injection drug use. Completing 2 weeks of IV cefazolin as inpatient given history of injection drug use. Cefazolin will continue through 04/22/2016. Check CBC and CMP in a.m. for safety purposes while on IV cefazolin. * Lower extremity wounds: Continue local wound care. Wound care notes reviewed. Will sign off, please call with questions. 04/19/16 14:00 Subjective: Patient complains of nausea this a.m.. Improved with use of Zofran but not fully resolved. No abdominal pain. Objective: Vital Signs Temp Pulse Resp BP Pulse Ox 36.7 C 87 16 161/98 H 98 04/19/16 07:40 04/19/16 07:40 04/19/16 07:40 04/19/16 09:16 04/19/16 07:40 Laboratory Results 04/14/16 06:30 04/14/16 06:30 04/18/16 04/19/16 04/20/16 05:59 05:59 05:59 Intake Total 220 108 Output Total Balance 220 108 ESR 34 MM/HR (0-20) H 04/08/16 01:50 C-Reactive Protein 141.9 mg/L (<10.0) H 04/08/16 01:50 Cefazolin with stop date of 04/22/2016 Blood cultures 04/08/2016 no growth - Physical Exam General Appearance: alert, non-toxic EENT: pharynx normal, No scleral icterus Cardiac/Chest: regular rate, rhythm Abdomen: non-tender, No distended ICD10 Worksheet Patient Problems: Problems Problem Status Onset Bacteremia Acute Pneumonia Acute
[2016-04-19] MEDS: LORazepam 2 MG/ML INJ IVP PRN ×3 (14:18→23:18)
[2016-04-19] MEDS ORDERED: D5W 1/2 NS 1,000 ML IV SCH (16:00)
[2016-04-19] MEDS: MONTELUKAST SODIUM 10 MG TAB PO SCH (16:19)
[2016-04-20] MEDS: traMADol 50 MG TAB PO PRN (00:01)
[2016-04-20] MEDS: ceFAZolin 2 GM/DEXTROSE 100 ML IV SCH (05:13)
[2016-04-20] MEDS: ONDANSETRON 4 MG/2 ML VIAL IVP PRN ×4 (05:33→22:35)
[2016-04-20 05:48] LABS: % IMMATURE GRANULYOCYTES 0.7 % (0.0-1.1); ABSOLUTE IMMATURE GRANULOCYTES 0.11 10^3/uL (0.00-0.10); ADD DIFF? NO; ADD MORPH? NO; ADD SCAN? NO; ATYPICAL LYMPHOCYTE FLAG 0 (0-99); FRAGMENT RBC FLAG 60 (0-99); HEMATOCRIT 33.6 % (38.0-47.0); HEMOGLOBIN 10.2 g/dL (12.6-16.3); LEFT SHIFT FLG 0 (0-99); LIPEMIA HEMOLYSIS FLAG 80 (0-99); MEAN CELL HEMOGLOBIN CONCENTR. 30.4 g/dL (32.4-36.7); MEAN CELL VOLUME 75.8 fL (81.5-99.8); MEAN PLATELET VOLUME 11.5 fL (8.7-11.7); PLATELET CLUMPS FLAG 10 (0-99); PLATELET COUNT 534 10^3/uL (150-400); RED BLOOD CELL COUNT 4.43 10^6/uL (4.18-5.33); RED CELL DISTRIBUTION WIDTH 18.4 % (11.5-15.2)
[2016-04-20 06:21] LABS: ALANINE AMINOTRANSFERASE 22 IU/L (9-52); ALKALINE PHOSPHATASE 75 IU/L (38-126); ANION GAP 10 mEq/L (8-16); ASPARTATE AMINOTRANSFERASE 16 IU/L (14-46); BILIRUBIN,TOTAL 1.3 mg/dL (0.1-1.4); CALCIUM 9.5 mg/dL (8.5-10.4); CARBON DIOXIDE 24 mEq/l (22-31); CHLORIDE 106 mEq/L (97-110); CREATININE 0.6 mg/dL (0.6-1.0); GLOMERULAR FILTRATION RATE > 60; GLUCOSE 103 mg/dL (70-100); POTASSIUM 4.4 mEq/L (3.5-5.2); SODIUM 140 mEq/L (134-144); TOTAL PROTEIN 7.1 g/dL (6.3-8.2)
[2016-04-20] MEDS: FAMOTIDINE 20 MG TAB PO SCH (08:33)
[2016-04-20] MEDS: ENOXAPARIN 40 MG/0.4 ML SYR SC SCH (08:33)
[2016-04-20] MEDS: NICOTINE 21 MG/24 HR PATCH TD SCH (08:34)
[2016-04-20] MEDS: ACIDOPH PO SCH (12:05)
[2016-04-20] MEDS: VORTIOXETINE HYDROBROMIDE 20 MG PO SCH (12:05)
[2016-04-20] MEDS: FERROUS SULFATE 325 MG TAB PO SCH ×2 (12:05→21:26)
[2016-04-20] MEDS: PARACASEI B LACTIS PO SCH (12:05)
[2016-04-20] MEDS: ceFAZolin 2 GM in D5W 100 ML IV SCH ×2 (14:51→21:25)
--- NOTE | 2016-04-20 16:44 | HOSPPROG ---
Hospitalist Progress Note Assessment/Plan: 26y female hx of IVDA. * MSSA bacteremia - skin source - likely due to ongoing IVDA -given IVDA history - inpatient until 04/22 as can't go home with PICC * Ongoing IVDA - found with needles in bathroom -boyfriend not allowed on campus (patient states her boyfriend doesn't use heroine) -parents are not aware of her recent drug use, patient requests confidentiality *leukocytosis -increase in wbc count today, but suspect this was from some vomiting yesterday *anemia - most likely due to acute illness/ will follow * Diarrhea - C.Diff neg -resolved * Leg wounds - related to her IVDA/poor care -healing nicely under our care -outpatient wound center reports non-compliance with dressings * Opiate detox -resolved -intensive outpatient rehab after discharge/ Tiara has a plan at discharge/ reviewed this with her today. 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 Objective: Vital Signs Temp Pulse Resp BP Pulse Ox 36.7 C 86 16 116/80 98 04/20/16 15:43 04/20/16 15:43 04/20/16 15:43 04/20/16 15:43 04/20/16 15:43 Laboratory Results 04/20/16 05:30 04/20/16 05:30 04/19/16 04/20/16 04/21/16 05:59 05:59 05:59 Intake Total 220 1908 Output Total 50 Balance 220 1858 - Physical Exam Constitutional: no apparent distress, appears nourished, not in pain Eyes: PERRL Ears, Nose, Mouth, Throat: hearing normal Cardiovascular: regular rate and rhythym Respiratory: no respiratory distress Gastrointestinal: normoactive bowel sounds Skin: warm, other (dressings on bilateral lower extremity wounds) Musculoskeletal: no muscle tenderness Neurologic: AAOx3 Psychiatric: interacting appropriately, not anxious ICD10 Worksheet Patient Problems: Problems Problem Status Onset Bacteremia Acute Pneumonia Acute
[2016-04-20] MEDS: MONTELUKAST SODIUM 10 MG TAB PO SCH (17:49)
[2016-04-20] MEDS: LORazepam 2 MG/ML INJ IVP PRN (19:49)
[2016-04-20] MEDS: ALPRAZolam 1 MG TAB PO PRN (22:13)
[2016-04-21] MEDS: ceFAZolin 2 GM in D5W 100 ML IV SCH ×3 (05:49→22:22)
[2016-04-21] MEDS: ONDANSETRON 4 MG/2 ML VIAL IVP PRN (05:52)
[2016-04-21] MEDS: LORazepam 2 MG/ML INJ IVP PRN (07:44)
--- NOTE | 2016-04-21 09:34 | WOCRNPDOC ---
WOCRN Advanced Assessment Note - Skin Integrity Problem, Advanced Assess Right Anterior Lower Leg Dressing Type: Allevyn Life Dressing Description: Saturated (along distal and lateral aspect of dressing) Exudate Amount: Moderate Exudate Color: Yellow, Red Exudate Characteristic(s): Serosanguinous, Thick Integumentary Issue Intervention: Dressing Changed Michelle Wound Tissue: Macerated Michelle Wound Swelling: None Wound Bed Color: Red, Yellow Wound Bed Constitution: Granulation Tissue (70%), Hypergranulation (30%), Loose Slough (Removed w/ NS and gauze) Site Odor: None Skin Integrity Problem Comment: Wound exudate noted on distal and lateral aspect of dressing prior to removal. Upon assessment, loose slough noted along wound margins, w/ macerated tissue immediately michelle-wound. This indicates the dressing was overwhelmed by exudate and too moist. There is also hypergranulation noted medially, and patient would benefit from application of silver nitrate when she resumes her outpatient wound care visits. Applied a silver alginate dressing to wound bed to facilitate absorption of exudate, and covered w/ Allevyn. Patient is expected to DC tomorrow 04/22, and orders have been written for home care. She reports that her outpatient wound care visits will resume next week. Left Anterior Lower Leg Dressing Type: Hydrocolloid Exudate Amount: Moderate Exudate Color: Reddish/Yellow Exudate Characteristic(s): Serosanguinous Integumentary Issue Intervention: Dressing Changed Michelle Wound Tissue: Macerated Michelle Wound Swelling: None Wound Bed Color: Red, Yellow Wound Bed Constitution: Granulation Tissue (25%), Smooth Tissue (40%), Adhered Slough (35%) Wound Edges: Irregular Site Odor: None Skin Integrity Problem Comment: Removed hydrocolloid dressing, which removed significant amount of necrotic tissue since I last assessed wound on 04/16. Wound bed now shows islands of mixed smooth and granulation tissues, w/ adhered slough surrounding. There is a thin sliver of maceration observed all along wound periphery, but not significant enough to warrant DC of hydrocolloid. Changed dressing to honey hydrocolloid to continue facilitating autolytic debridement of necrotic tissue, and covered w/ Allevyn Life. Patient to continue w/ outpatient wound care upon DC.
[2016-04-21] MEDS: NICOTINE 21 MG/24 HR PATCH TD SCH (10:22)
[2016-04-21] MEDS: VORTIOXETINE HYDROBROMIDE 20 MG PO SCH (10:22)
[2016-04-21] MEDS: FAMOTIDINE 20 MG TAB PO SCH (10:23)
[2016-04-21] MEDS: ACIDOPH PO SCH (10:23)
[2016-04-21] MEDS: FERROUS SULFATE 325 MG TAB PO SCH ×2 (10:23→22:22)
[2016-04-21] MEDS: PARACASEI B LACTIS PO SCH (10:23)
[2016-04-21] MEDS: ENOXAPARIN 40 MG/0.4 ML SYR SC SCH (10:23)
[2016-04-21] MEDS: traMADol 50 MG TAB PO PRN (12:33)
--- NOTE | 2016-04-21 12:54 | HOSPPROG ---
Hospitalist Progress Note Assessment/Plan: 26y female hx of IVDA. * MSSA bacteremia - skin source - likely due to ongoing IVDA -given IVDA history - inpatient until 04/22 as can't go home with PICC * Ongoing IVDA - found with needles in bathroom -boyfriend not allowed on campus (patient states her boyfriend doesn't use heroine) -parents are not aware of her recent drug use, patient requests confidentiality *leukocytosis -increase in wbc count *anemia - most likely due to acute illness * Diarrhea - C.Diff neg -resolved * Leg wounds - related to her IVDA/poor care -healing nicely under our care -outpatient wound center reports non-compliance with dressings * Opiate detox -resolved -intensive outpatient rehab after discharge/ Tiara has a plan at discharge/ reviewed this with her today. 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 Objective: Vital Signs Temp Pulse Resp BP Pulse Ox 36.9 C 90 18 151/94 H 96 04/20/16 22:05 04/21/16 08:45 04/21/16 08:45 04/21/16 08:45 04/21/16 08:45 Laboratory Results 04/20/16 05:30 04/20/16 05:30 04/20/16 04/21/16 04/22/16 05:59 05:59 05:59 Intake Total 1908 Output Total 50 Balance 1858 - Physical Exam Constitutional: no apparent distress, not in pain Eyes: PERRL Ears, Nose, Mouth, Throat: hearing normal Cardiovascular: regular rate and rhythym Respiratory: no respiratory distress Gastrointestinal: normoactive bowel sounds Skin: warm Musculoskeletal: no muscle tenderness Neurologic: AAOx3 Psychiatric: interacting appropriately, not anxious ICD10 Worksheet Patient Problems: Problems Problem Status Onset Bacteremia Acute Pneumonia Acute
[2016-04-21] MEDS: FLUTICASONE NASAL 120 SPRAYS/16 GM MDI EACHNARE SCH (15:04)
[2016-04-21] MEDS: MONTELUKAST SODIUM 10 MG TAB PO SCH (17:42)
[2016-04-21 22:20] VITALS: BP 122/73
[2016-04-21] MEDS: ALPRAZolam 1 MG TAB PO PRN ×2 (22:22→22:28)
[2016-04-22] MEDS: ceFAZolin 2 GM in D5W 100 ML IV SCH ×2 (05:13→13:00)
[2016-04-22] MEDS: ONDANSETRON 4 MG/2 ML VIAL IVP PRN ×2 (06:13→12:24)
[2016-04-22 07:27] VITALS: PULSE 91; RESP 16; TEMP 98.1; O2SAT 98
[2016-04-22] MEDS: LORazepam 2 MG/ML INJ IVP PRN ×2 (07:47→12:24)
[2016-04-22] MEDS: FLUTICASONE NASAL 120 SPRAYS/16 GM MDI EACHNARE SCH (09:26)
[2016-04-22] MEDS: FAMOTIDINE 20 MG TAB PO SCH (09:27)
[2016-04-22] MEDS: ENOXAPARIN 40 MG/0.4 ML SYR SC SCH (09:27)
[2016-04-22] MEDS: NICOTINE 21 MG/24 HR PATCH TD SCH (09:27)
[2016-04-22] MEDS: FERROUS SULFATE 325 MG TAB PO SCH (09:27)
[2016-04-22] MEDS: VORTIOXETINE HYDROBROMIDE 20 MG PO SCH (09:28)
[2016-04-22] MEDS: PARACASEI B LACTIS PO SCH (09:28)
[2016-04-22] MEDS: ACIDOPH PO SCH (09:28)
[2016-04-22] MEDS: ALPRAZolam 1 MG TAB PO PRN (10:39)
--- NOTE | 2016-04-22 16:14 | GDS ---
[f rep st] DISCHARGE SUMMARY DISCHARGE DIAGNOSES: 1. MSSA bacteremia. 2. Ongoing IV drug abuse. 3. Leukocytosis. 4. Anemia. 5. Chronic leg wound secondary to IV drug use. 6. Anxiety. CONSULTATIONS: 1. Infectious Disease. 2. Wound Care. PHYSICAL EXAM: GENERAL: The patient is alert. VITAL SIGNS: Afebrile at 36.7, pulse is 91, respir atory rate is 16, blood pressure is 122/73, she is saturating 98% on room air. I have seen and eval uated the patient on the day of discharge. HOSPITAL COURSE: The patient is a 26-year-old female, presented to the emergency room, diagnosed wi . 1. MSSA bacteremia. During this hospitalization, the patient was treated with IV antibiotic therap y and PICC line was placed. Her bacteremia, secondary to her ongoing IV drug abuse. She was then t reated with a full course of IV antibiotics, and her PICC line will be removed prior to disposition. 2. IV drug abuse. The patient will continue intensive outpatient therapy per her family's recommen dations. 3. Leukocytosis. This is secondary to acute infectious process. 4. Leg wounds. She has outpatient followup at [facility] for wound care. 5. Anxiety. This is stable. 6. Disposition. The patient will be discharged home with her family independently. There are no p ending studies. Followup will be at [facility] with Wound Care as well as with the patient's primary care physician and recommended drug detox. DISCHARGE MEDICATIONS: Please refer to EMR form. She has not provided any prescriptions at the [facility] e of disposition. I spent greater than 35 minutes in the care, coordination, and management of this patient's discharg e. /[id number]/MODL
== END 2016-04-22 14:19 | disposition home or self-care (01) | DRG 593 ==
LOC: F2W 04-08 03:30 → F3E 04-08 15:32
PROVIDERS: ADMIT Internal Medicine; ATTEND Hospitalist
PROC: 02HV33Z Insertion of Infusion Device into Superior Vena Cava, Percutaneous Approach (ICD-10-PCS; 2016-04-08)
PROC: B246ZZ4 Ultrasonography of Right and Left Heart, Transesophageal (ICD-10-PCS; 2016-04-10)
PROC: HZ2ZZZZ Detoxification Services for Substance Abuse Treatment (ICD-10-PCS; principal; 2016-04-12)
DX: L97.929 Non-pressure chronic ulcer of unspecified part of left lower leg with unspecified severity (principal); L97.919 Non-pressure chronic ulcer of unspecified part of right lower leg with unspecified severity; R78.81 Bacteremia; B95.61 Methicillin susceptible Staphylococcus aureus infection as the cause of diseases classified elsewhere; F11.23 Opioid dependence with withdrawal; R07.81 Pleurodynia; R91.8 Other nonspecific abnormal finding of lung field; J68.9 Unspecified respiratory condition due to chemicals, gases, fumes and vapors; F17.200 Nicotine dependence, unspecified, uncomplicated; Q23.1 Congenital insufficiency of aortic valve; F41.9 Anxiety disorder, unspecified; F32.9 Major depressive disorder, single episode, unspecified; R19.7 Diarrhea, unspecified; W46.0XXA Contact with hypodermic needle, initial encounter
CPT/HCPCS: 80307; 83516-90; 83520-90; 86255-90; 86704-90; 96374; C1751; G0472; G0480; J0690; J1650; J1885; J2405; J2704; J2997; Q9967

== ENCOUNTER → 2017-12-15 | Outpatient (CLI) | payer OTHER | LOC: FIMAGING 09:18 | PROVIDERS: ATTEND Family Medicine | DX: Z13.820 Encounter for screening for osteoporosis (principal); M81.0 Age-related osteoporosis without current pathological fracture; E03.9 Hypothyroidism, unspecified; F50.9 Eating disorder, unspecified; Z68.1 Body mass index [BMI] 19.9 or less, adult ==